=== PATIENT | female | born 1985 | race Caucasian/White ===

== ENCOUNTER 2019-05-16 10:43 | Emergency (ER) | payer OTHER, SELFPAY | END 2019-05-16 12:32 | disposition home or self-care (01) | PROVIDERS: Emergency Provider Nurse Practitioner Family; Family Provider Family Medicine; Visit Provider Nurse Practitioner Family | DX: S61.231A Puncture wound without foreign body of left index finger without damage to nail, initial encounter (principal); W46.1XXA Contact with contaminated hypodermic needle, initial encounter; F17.210 Nicotine dependence, cigarettes, uncomplicated | CPT/HCPCS: 36415; 86706; 86803; 87340; 87389; 99281 ==

== ENCOUNTER → 2020-07-10 00:01 | Outpatient (BNVA) | payer MEDICAID, SELFPAY | PROVIDERS: Family Provider Family Medicine | DX: Z13.6 Encounter for screening for cardiovascular disorders (principal) | CPT/HCPCS: 80061; 82947; 83036 ==

== ENCOUNTER 2020-08-19 20:36 | Emergency (ER) | payer OTHER, SELFPAY ==
[2020-08-19 20:47] VITALS: BP 119/80; PULSE 88; RESP 22; TEMP 36.7; O2SAT 97; BMI 34.9
--- NOTE | 2020-08-20 00:28 | W.ED.FEMALGU ---
HPI - Female Genitourinary General: Chief complaint: Vaginal Bleeding Stated complaint: IUD PROBLEM Time Seen by Provider: 08/20/20 00:15 History of Present Illness: HPI Narrative: Patient is a 35-year-old female comes to the ED with vaginal bleeding and wanting IUD removed. Patient says that yesterday she started developing some mild vaginal bleeding and pain after having sex with her boyfriend. She says it hurt during intercourse as well. She states that afterwards she reached up and felt the string of the IUD that was placed and pulled on it to try to remove it herself because she felt like the IUD might have been causing her discomfort. She was unable to remove IUD her self. Here in the ED she is adamantly requesting that we remove her IUD before she discharges and that is the main thing she wants done. Denies any dysuria or hematuria, fever, chills, nausea/vomiting, bowel symptoms. She has not taken anything for pain before coming to the ED. Patient reports having this kind of bleeding and pelvic pain in the past. Associated symptoms: Deny abdominal pain, headache(s) or nausea Review of Systems Const: Denies: fever(s), chills or fatigue Eyes: Denies: change in vision or eye discomfort ENMT: Denies: throat pain, odynophagia, nasal discharge or nasal congestion Card: Denies: chest pain, palpitations, edema, swelling of feet/ankles, dyspnea on exertion or orthopnea Resp: Denies: dyspnea, productive cough or non-productive cough GI: Denies: abdominal pain, nausea, vomiting, diarrhea, constipation or hematochezia : Reports: vaginal bleeding, pelvic pain and dyspareunia; Denies: flank pain, dysuria or hematuria Musc: Denies: neck pain, back pain or extremity swelling Skin/Breast: Denies: rash or new lesions Neuro: Denies: headache(s), numbness in extremities or weakness in extremities Physical Exam Const: COMMON NORMALS: no acute distress, patient oriented x3 and alert GENERAL APPEARANCE: cooperative and comfortable HENMT: COMMON NORMALS: normocephalic HEAD & SCALP: normocephalic MOUTH: Normal oral and palatal mucosa present THROAT: posterior oropharynx normal and uvula midline Neck/C-Spine: COMMON NORMALS: supple GENERAL: Yes normal visual inspection Resp: COMMON NORMALS: normal respiratory effort, No retractions, No use of accessory muscles and clear to auscultation bilaterally AUSCULTATION: clear to auscultation bilaterally Cardio: COMMON NORMALS: regular rate, regular rhythm, S1 normal heart sound present, S2 normal heart sound present, No gallops present (Cardio), No clicks present (Cardio), No murmurs present (Cardio) and Peripheral pulses 2+ throughout RATE: regular rate RHYTHM: regular rhythm HEART SOUNDS: S1 normal heart sound present and S2 normal heart sound present PERIPHERAL PULSES: Peripheral pulses 2+ throughout GI: COMMON NORMALS: Normal to inspection, nondistended, normoactive bowel sounds present, Soft to palpation and no masses PALPATION: Yes Soft to palpation and Yes Tenderness to palpation present (GI) Details: other (Lower bilateral pelvic tenderness.) : COMMON NORMALS: Yes no CVA tenderness, Yes normal external appearance and Yes normal appearance of the vagina BLADDER/KIDNEY EXAM: Yes no CVA tenderness EXTERNAL FEMALE EXAM: Yes normal appearance of the urethra SPECULUM EXAM - CERVIX: Yes Cervical bleeding (Mild), No Abnormal cervical discharge present and Yes IUD string present Back/Pelvis: COMMON NORMALS: no CVA tenderness Extremity: COMMON NORMALS: normal to inspection Neuro: COMMON NORMALS: patient oriented x3 and moves all extremities SENSORIUM/ORIENTATION: Yes alert Skin: GENERAL SKIN EXAM: dry skin Course ED course: I performed a vaginal speculum exam and removed IUD. There was no complication upon removal of IUD. Cervix had some mild bleeding, but no other discharge seen. Vital Signs: Vital signs: Vital Signs Temperature 98.1 F 08/19/20 20:47 Pulse Rate 88 08/20/20 03:33 Respiratory Rate 16 08/20/20 03:33 Blood Pressure 136/74 08/20/20 03:33 Pulse Oximetry 99 08/20/20 03:33 MDM - Female MDM Narrative: Medical decision making narrative: Patient is a 35-year-old female comes to the ED with lower pelvic pain, mild vaginal bleeding. Patient says that she feels like her IUD is causing her current symptoms and tried pulling on string herself and removing it herself before coming to the ED which caused some pain and some bleeding. Patient says her main reason for coming to the ED she wants IUD removed. CBC and CMP and UA were unremarkable. hCG negative. Speculum exam performed and IUD was removed with no complications. Cervix had some minimal light bleeding seen before removal of IUD. Patient was discharged home and diagnosed with encounter for IUD removal, pelvic pain and vaginal bleeding. Patient was told to follow-up with PCP/[facility] doctor in a week for reevaluation. Return to ED precautions given. Patient understood and agreed with plan. Lab Data: Attestation: I reviewed the patient's lab results. Labs: Lab Results 08/20/20 08/20/20 08/20/20 Range/Units 00:50 00:50 00:50 WBC 10.7 H (4.0-10.0) 10^3/ uL RBC 4.43 (4.1-5.3) 10^6/u L Hgb 13.0 (11.5-15.3) g/dL Hct 40.5 (37.0-47.0) % MCV 91.4 (81-99) fL MCH 29.3 (28.0-34.0) pg MCHC 32.1 (30.0-36.0) g/dL RDW 12.7 (12.1-15.1) % Plt Count 305 (130-400) 10^3/c mm MPV 10.8 H (7.4-10.4) fL Neut % (Auto) 59.9 % Lymph % (Auto) 27.4 % [place] % (Auto) 7.9 % Eos % (Auto) 3.9 % Baso % (Auto) 0.6 % Neut # (Auto) 6.42 (1.8-7.7) 10^3/u L Lymph # (Auto) 2.9 (0.8-4.8) 10^3/u L [place] # (Auto) 0.8 (0.2-0.9) 10^3/u L Eos # (Auto) 0.4 (0.0-0.8) 10^3/u L Baso # (Auto) 0.1 (0.0-0.1) 10^3/u L Nucleated RBC % (a uto) 0 % Nucleated RBCs # 0.0 /100WBC Sodium 137 (136-145) mmol/L Potassium 3.5 (3.5-5.1) mmol/L Chloride 105 (98-107) mmol/L Carbon Dioxide 23 (22-29) mmol/L Anion Gap 12.5 (5-19) BUN 8 (6-20) mg/dL Creatinine 0.4 L (0.5-0.9) mg/dL GFR Calculation 183.8 H (90-130) mL/min Glucose 92 (65-115) mg/dL Calculated Osmolal ity 282 L (285-295) mOsm/k g Calcium 9.2 (8.5-10.5) mg/dL Total Bilirubin 0.4 (0.15-1.2) mg/dL AST 18 (0-32) U/L ALT 13 (0-33) U/L Alkaline Phosphata se 84 (35-105) IU/L Total Protein 6.8 (6.6-8.7) g/dL Albumin 4.5 (3.5-5.2) g/dL Globulin 2.3 (1.3-4.6) g/dL HCG, Qual Negative (Negative) Urine Color (Yellow) Urine Appearance (CLEAR) Urine pH (5-7) Ur Specific Gravit y (1.005-1.030) Urine Protein (Negative) Urine Glucose (UA) (Normal) Urine Ketones (Negative) Urine Blood (Negative) Urine Nitrate (Negative) Urine Bilirubin (Negative) Urine Urobilinogen (Negative) mg/dL Ur Leukocyte Mariela ase (Negative) Urine RBC (0-2) /hpf Urine WBC (0-5) /hpf Ur Squamous Epith Cells (0-5) /hpf Amorphous Sediment Urine Bacteria (NONE) /hpf Urine Mucus /hpf 08/20/20 Range/Units 00:50 WBC (4.0-10.0) 10^3/ uL RBC (4.1-5.3) 10^6/u L Hgb (11.5-15.3) g/dL Hct (37.0-47.0) % MCV (81-99) fL MCH (28.0-34.0) pg MCHC (30.0-36.0) g/dL RDW (12.1-15.1) % Plt Count (130-400) 10^3/c mm MPV (7.4-10.4) fL Neut % (Auto) % Lymph % (Auto) % [place] % (Auto) % Eos % (Auto) % Baso % (Auto) % Neut # (Auto) (1.8-7.7) 10^3/u L Lymph # (Auto) (0.8-4.8) 10^3/u L [place] # (Auto) (0.2-0.9) 10^3/u L Eos # (Auto) (0.0-0.8) 10^3/u L Baso # (Auto) (0.0-0.1) 10^3/u L Nucleated RBC % (a uto) % Nucleated RBCs # /100WBC Sodium (136-145) mmol/L Potassium (3.5-5.1) mmol/L Chloride (98-107) mmol/L Carbon Dioxide (22-29) mmol/L Anion Gap (5-19) BUN (6-20) mg/dL Creatinine (0.5-0.9) mg/dL GFR Calculation (90-130) mL/min Glucose (65-115) mg/dL Calculated Osmolal ity (285-295) mOsm/k g Calcium (8.5-10.5) mg/dL Total Bilirubin (0.15-1.2) mg/dL AST (0-32) U/L ALT (0-33) U/L Alkaline Phosphata se (35-105) IU/L Total Protein (6.6-8.7) g/dL Albumin (3.5-5.2) g/dL Globulin (1.3-4.6) g/dL HCG, Qual (Negative) Urine Color Yellow (Yellow) Urine Appearance Sl hazy (CLEAR) Urine pH 5 (5-7) Ur Specific Gravit y 1.015 (1.005-1.030) Urine Protein Neg (Negative) Urine Glucose (UA) Norm (Normal) Urine Ketones 1+ H (Negative) Urine Blood Trace H (Negative) Urine Nitrate Negative (Negative) Urine Bilirubin Neg (Negative) Urine Urobilinogen Norm (Negative) mg/dL Ur Leukocyte Mariela ase Negative (Negative) Urine RBC 0-4 H (0-2) /hpf Urine WBC 0-4 H (0-5) /hpf Ur Squamous Epith Cells 10-15 H (0-5) /hpf Amorphous Sediment Not Reportable Urine Bacteria Trace (NONE) /hpf Urine Mucus 4+ /hpf Imaging Data: US OB: Attestation: I personally reviewed and interpreted this imaging study as follows: Radiologist's impression: [address] [place] [address] Ultrasound Report Signed Patient: Christal Villagomez Unit #: [id number] : 1985 Age/Sex: 35 / F ADM Date: 08/19/20 Loc: ER Room/Bed: Attending Dr: Ordering Provider/Ordering MD: Quinton Ndiaye Date of Service: 08/20/20 Procedure(s): US pelvic complete* [id number] Accession Number(s): [id number] Report Number: [id number] PROCEDURE INFORMATION: Exam: US Pelvis Complete, Transabdominal and US Pelvis, Transvaginal Exam date and time: 08/20/2020 1:43 AM Age: 35 years old Clinical indication: Pelvic pain; Patient HX: ? Iud malplacement; Additional info: Vaginal bleeding and pelvic cramping TECHNIQUE: Imaging protocol: Real-time transabdominal and transvaginal pelvic ultrasound (complete) with image documentation. Transvaginal imaging was used for better evaluation of the endometrium, adnexa, and/or cervix. COMPARISON: No relevant prior studies available. FINDINGS: The uterus measures 9-10 cm in length. There is no visible focal uterine mass. An IUD is present within the uterus. I think that the IUD lies in the lower uterine segment, possibly extending partially into the cervical region. There is no intrauterine fluid. Endometrial thickness is about 7 mm. Small amount of cul-de-sac fluid. The right ovary measures 27 x 16 x 21 mm, estimated volume 4.6 cc. The right ovary appears essentially unremarkable. The left ovary measures 34 x 28 x 30 mm, estimated volume 14.6 cc. Small complex cyst in the left ovary, measuring 19 x 16 mm. A physiologic/hemorrhagic cyst is likely, other etiologies not excluded. As clinically directed, follow up in one to three months may be useful to evaluate for resolution of a physiologic cyst, and to guard against a persistent/enlarging lesion. The urinary bladder was not completely evaluated/imaged at this time. Endovaginal scanning provided better visualization/evaluation of the endometrium and ovaries/adnexal regions, as discussed above. US/US pelvic complete* [id number] IMPRESSION: 1. An IUD is present within the uterus, details above. 2. Small complex cyst in the left ovary, measuring 19 x 16 mm. 3. Small amount of cul-de-sac fluid 4. Other details discussed above. Dictated By: Theo Mueller MD Signed By: Theo Mueller MD Signed Date/Time: 08/20/20222 DD/ 0 Discharge Plan Discharge Patient Disposition: Home Clinical Impression: Encounter for IUD removal, Vaginal bleeding, Pelvic pain in female Condition: Stable Discharge Orders: Discharge ED (Routine); Ordered 08/20/20 Ordered By: Quinton Ndiaye Referrals: Juana Castaneda FNP [Primary Care Provider] - Discharge Diet: Regular Discharge Activity: Increase activity as tolerated Activity Restrictions/Additional Instructions: Follow-up with [facility] doctor in the next week for reevaluation. Take [id number] ibuprofen or Tylenol for any pain. Return to the ER or your medical provider if condition worsens. Please read and understand discharge instructions. If any questions, please ask. Coding Level of Care Code ED Optometric Assistant for Chg Fwd Exam Comprehensive
[2020-08-20] MEDS: ibuprofen 600 mg Tablet PO (00:46)
[2020-08-20 01:01] LABS: Basophils # 0.1 10^3/uL (0.0-0.1); Basophils % 0.6 %; Eosinophils # 0.4 10^3/uL (0.0-0.8); Eosinophils % 3.9 %; Hematocrit 40.5 % (37.0-47.0); Lymphocytes # 2.9 10^3/uL (0.8-4.8); Lymphocytes % 27.4 %; Mean Corpuscular HGB Conc 32.1 g/dL (30.0-36.0); Mean Corpuscular Hemoglobin 29.3 pg (28.0-34.0); Mean Corpuscular Volume 91.4 fL (81-99); Mean Platelet Volume 10.8 fL (7.4-10.4); Monocytes # 0.8 10^3/uL (0.2-0.9); Monocytes % 7.9 %; Neutrophils # 6.42 10^3/uL (1.8-7.7); Neutrophils % 59.9 %; Nucleated Red Blood Cells % 0 %; Platelet Count 305 10^3/cmm (130-400); Red Blood Count 4.43 10^6/uL (4.1-5.3); Red Cell Distribution Width 12.7 % (12.1-15.1); White Blood Count 10.7 10^3/uL (4.0-10.0)
[2020-08-20 01:05] LABS: HCG, Serum Qual Negative (Negative)
[2020-08-20 01:25] LABS: Bilirubin Urine Neg (Negative); Blood Urine Trace (Negative); Glucose Urine UA Norm (Normal); Ketones Urine 1+ (Negative); Leukocyte Esterase Urine Negative (Negative); Nitrate Urine Negative (Negative); Protein Urine Neg (Negative); Specific Gravity, Urine 1.015 (1.005-1.030); Urine Appearance SL Hazy (CLEAR); Urine Color Yellow (Yellow); Urobilinogen Urine Norm (Negative); pH Urine 5 (5-7)
[2020-08-20 01:26] LABS: Bacteria Urine TRACE /hpf; RBC Urine 0-4 /hpf (0-2); WBC Urine 0-4 /hpf (0-5)
[2020-08-20 01:27] LABS: Add Urine Culture? No; Mucus Urine 4+ /hpf
[2020-08-20 02:02] LABS: Alanine Aminotransferase 13 U/L (0-33); Albumin Level 4.5 g/dL (3.5-5.2); Alkaline Phosphatase 84 IU/L (35-105); Anion Gap 12.5 (5-19); Aspartate Amino Transferase 18 U/L (0-32); Blood Urea Nitrogen 8 mg/dL (6-20); Calcium 9.2 mg/dL (8.5-10.5); Carbon Dioxide 23 mmol/L (22-29); Chloride 105 mmol/L (98-107); Globulin 2.3 g/dL (1.3-4.6); Glomerular Filtration Rate 183.8 mL/min (90-130); Glucose 92 mg/dL (65-115); Osmolality Calculated 282 mOsm/kg (285-295); Potassium 3.5 mmol/L (3.5-5.1); Sodium 137 mmol/L (136-145); Total Bilirubin 0.4 mg/dL (0.15-1.2); Total Protein 6.8 g/dL (6.6-8.7)
[2020-08-20] MEDS: HYDROcodone-acetaminophen 5-325 mg Tablet 1 TAB PO (02:25)
[2020-08-20 03:33] VITALS: BP 136/74; PULSE 88; RESP 16; O2SAT 99
== END 2020-08-20 03:35 | disposition home or self-care (01) ==
PROVIDERS: Emergency Provider Physician Assistant; PCP Nurse Practitioner Family
DX: Z30.432 Encounter for removal of intrauterine contraceptive device (principal); N93.9 Abnormal uterine and vaginal bleeding, unspecified; R10.2 Pelvic and perineal pain
CPT/HCPCS: 76830; 76856; 80053; 81001; 84703; 85025; 99283; E0352

== ENCOUNTER → 2021-01-15 10:27 | Outpatient (BNVA) | payer OTHER, SELFPAY | PROVIDERS: PCP Nurse Practitioner Family; Visit Provider Obstetrics & Gynecology | DX: N83.8 Other noninflammatory disorders of ovary, fallopian tube and broad ligament (principal) | CPT/HCPCS: 76830 ==

== ENCOUNTER → 2021-03-08 13:04 | Outpatient (BNVA) | payer OTHER, SELFPAY | PROVIDERS: PCP Nurse Practitioner Family; Visit Provider Obstetrics & Gynecology | DX: N83.202 Unspecified ovarian cyst, left side (principal) | CPT/HCPCS: 76830 ==

== ENCOUNTER → 2021-04-09 08:17 | Outpatient (BNVA) | payer OTHER, SELFPAY | PROVIDERS: PCP Nurse Practitioner Family; Visit Provider Obstetrics & Gynecology | DX: N83.202 Unspecified ovarian cyst, left side (principal) | CPT/HCPCS: 71046; 76830; 80053 ==

== ENCOUNTER 2021-04-10 18:50 | Emergency (ER) | payer OTHER, SELFPAY ==
[2021-04-10 19:13] VITALS: BP 131/86; PULSE 102; RESP 16; TEMP 36.9; O2SAT 97; BMI 31.4
--- NOTE | 2021-04-10 19:32 | ECG_ITS ---
[facility] Test Date: 2021-04-10 Pat Name: Christal Villagomez Department: Room: Gender: Female Fashion Coordinator: : 1985 Requested By: Ellen Morales Order Number: [id number] Lucía MD: Fredy Dunlap M.D. Measurements Intervals [place] Rate: 93 P: 65 DE: 141 QRS: 54 QRSD: 98 T: 43 QT: 341 QTc: 425 Interpretive Statements SINUS RHYTHM WITH SINUS ARRHYTHMIA No previous ECG available for comparison Electronically Signed On 04-11-2021 17:44:42 MANAGER WASTEWATER by Fredy Dunlap M.D. [email or web address]
--- NOTE | 2021-04-10 20:02 | W.ED.GENADLT ---
HPI - General Adult General: Chief complaint: Recheck/Abnormal Lab/Rx Stated complaint: Dr sent by PCP Time Seen by Provider: 04/10/21 19:27 History of Present Illness: HPI narrative: Patient is a 35-year-old female with a history of recently diagnosed atypical pneumonia on antibiotics in steroids presenting to the emergency room for routine blood work of hyperkalemia. Patient tells me that she was found to have potassium 6.6 on routine blood work from 2 days ago. Patient has no focal complaints other than cough for which she is getting treatment for. Denies any chest pain, shortness breath palpitation, lightheadedness, fever/chills, nausea/vomiting, abdominal complaints, complaints at this time. Onset: 2 days ago Duration:ongoing Location:home Severity:none Review of Systems Narrative: Constitutional: No fever, no chills. HEENT: No vision changes CV: No chest pain, no palpitations PULM: no cough, no dyspnea. GI: No abdominal pain, no N/V/D. : No dysuria MSKEL: No muscle pain SKIN: No new rashes, no lesions. NEURO: No headache, no focal weakness. HEME: No visible bruises PSYCH: Normal mood PFSH ED PFSH: Medical History Allergic rhinitis Anxiety and depression History of Papanicolaou smear of cervix Negative for intraepithelial lesion and malignancy. Negative HPV. 10/31/2017. Migraine Family History Mother Anesthesia complication Awake but could not move or speak. Cancer Liver cancer after hepatitis c. Psychiatric illness Bipolar, manic depressive. Father Cancer Leukemia after agent orange exposure Denies family history of Diabetes CAD (coronary artery disease) Clotting disorder Dementia Hyperlipidemia Chronic kidney disease (CKD) Suicide Bleeding disorder Family history of premature coronary artery disease Lung disease Hypertension Stroke Social History Smoking and tobacco status: never smoked Quit status (tobacco): has quit using tobacco Year quit tobacco: 07/2020 Former quit date comment: has smoked 12 yrs Alcohol intake: current Alcohol intake frequency: holidays/special occasions only Current occupation: [employer] Female Reproductive History: Date of last menstrual period: 03/16/21 Physical Exam Narrative: EXAM NARRATIVE: Head: Atraumatic Eyes: PERRL, conjunctiva without injection ENT: Mucous membrane moist NECK: Supple, ROM intact LUNGS: LCTAB, no crackles/rhonchi CV: RRR ABDOMEN: Soft, nontender in all quadrants EXTREMITY: Normal ROM SKIN: No rash or erythema NEURO: Awake and alert, no focal motor deficits PSYCH: Normal mood and affect Course Vital Signs: Vital signs: Vital Signs Temperature 98.4 F 04/10/21 19:13 Pulse Rate 102 H 04/10/21 19:13 Respiratory Rate 16 04/10/21 19:13 Blood Pressure 131/86 04/10/21 19:13 Pulse Oximetry 97 04/10/21 19:13 MDM - General Adult MDM Narrative: Medical decision making narrative: 35-year-old female presents emergency room with concerns for hyperkalemia on routine blood work. Potassium 3.3 today per our blood work. EKG does not show any signs of hyperkalemia. Patient will be discharged with outpatient follow-up. Disposition: Discharge. Patient counseled regarding diagnostic impression, treatment plan. Patient given ED strict return precautions to return for continuation, worsening, or development of new symptoms. Instructed to f/u w/ PCP regarding symptoms today. Patient verbalized understanding. Lab Data: Labs: Lab Results 04/10/21 04/10/21 21:20 21:20 WBC 10.8 10^3/uL H 10 ^3/uL (4.0-10.0) RBC 4.70 10^6/uL 10^6 /uL (4.1-5.3) Hgb 13.7 g/dL g/dL (11.5-15.3) Hct 42.6 % % (37.0-47.0) MCV 90.6 fl fl (81-99) MCH 29.1 pg pg (28.0-34.0) MCHC 32.2 g/dL g/dL (30.0-36.0) RDW 13.4 % % (12.1-15.1) Plt Count 352 10^3/cmm 10^3 /cmm (130-400) MPV 10.5 fL H fL (7.4-10.4) Neut % (Auto) 49.6 % % Lymph % (Auto) 40.4 % % [place] % (Auto) 6.8 % % Eos % (Auto) 2.4 % % Baso % (Auto) 0.6 % % Neut # (Auto) 5.35 10^3/uL 10^3 /uL (1.8-7.7) Lymph # (Auto) 4.4 10^3/uL 10^3/ uL (0.8-4.8) [place] # (Auto) 0.7 10^3/uL 10^3/ uL (0.2-0.9) Eos # (Auto) 0.3 10^3/uL 10^3/ uL (0.0-0.8) Baso # (Auto) 0.1 10^3/uL 10^3/ uL (0.0-0.1) Nucleated RBC % (a uto) 0 % % Nucleated RBCs # 0.0 /100WBC /100W BC Sodium 142 mmol/L mmol/L (136-145) Potassium 3.3 mmol/L L mmol /L (3.5-5.1) Chloride 108 mmol/L H mmol /L (98-107) Carbon Dioxide 22 mmol/L mmol/L (22-29) Anion Gap 15.3 (5-19) BUN 11 mg/dL mg/dL (6-20) Creatinine 0.5 mg/dL mg/dL (0.5-0.9) GFR Calculation 142.1 mL/min H mL /min (90-130) Glucose 88 mg/dL mg/dL (65-115) Calculated Osmolal ity 293 mOsm/kg mOsm/ kg (285-295) Calcium 8.5 mg/dL mg/dL (8.5-10.5) Discharge Plan Discharge Patient Disposition: Home Clinical Impression: General medical exam Condition: Stable Prescriptions: No Action multivitamin Tablet 1 tab PO DAILY RF: 0 norgestimate-ethinyl estradiol [Ortho Tri-Cyclen (28)] 0.18/0.215/0.25 mg-35 mcg (28) tablet 1 tab PO DAILY Qty: 28 RF: 11 buspirone 10 mg tablet 10 mg PO TID Qty: 270 RF: 0 multivitamin with minerals [Hair,Skin and Nails] Tablet 3 tab PO DAILY RF: 0 docusate sodium 100 mg capsule 100 mg PO DAILY PRNRF: 0 venlafaxine [Effexor XR] 75 mg capsule,extended release 24hr 75 mg PO DAILY Qty: 30 RF: 0 Ubrelvy 100 mg tablet 100 mg PO .COMPLEX 30 Days Qty: 30 RF: 6 promethazine-DM 6.25-15 mg/5 mL syrup 5 ml PO Q6H Qty: 118 RF: 0 pantoprazole [Protonix] 40 mg tablet,delayed release (DR/EC) 40 mg PO DAILY 90 Days Qty: 90 RF: 0 methylprednisolone [Medrol (Jaylen)] 4 mg tablets,dose pack See Rx Instructions PO PER PKG DIR Qty: 21 RF: 0 albuterol sulfate [ProAir HFA] 90 mcg/actuation HFA aerosol inhaler 2 puff inhalation Q6H PRN (Reason: shortness of breath or wheezing) Qty: 8.5 RF: 0 promethazine-DM 6.25-15 mg/5 mL syrup 5 ml PO Q6H PRN (Reason: cough) Qty: 118 RF: 0 budesonide-formoterol [Symbicort] 160-4.5 mcg/actuation HFA aerosol inhaler 2 puff inhalation Q12H Qty: 10.2 RF: 6 azithromycin [Zithromax Z-Jaylen] 250 mg tablet See Rx Instructions PO .COMPLEX Qty: 6 RF: 0 Mucinex 1,200 mg tablet extended release 12hr 1,200 mg PO BID 10 Days Qty: 20 RF: 6 trazodone 50 mg tablet See Rx Instructions .ROUTE .COMPLEX Qty: 90 RF: 0 topiramate 100 mg tablet See Rx Instructions .ROUTE .COMPLEX Qty: 180 RF: 0 Discharge Orders: Discharge ED (Routine); Ordered 04/10/21 Ordered By: Ellen Morales Discharge Diet: Advance as tolerated Discharge Activity: Resume usual activity Activity Restrictions/Additional Instructions: Please come back to the emergency room you have any new or concerning complaints. Coding Level of Care Code ED Silver Buffer for Nehemiah Shaffer
[2021-04-10 21:20] VITALS: BP 128/79; PULSE 90; RESP 18; O2SAT 98
[2021-04-10] MEDS: sodium chloride 0.9% 1,000 ML 999 ML IV (21:31)
[2021-04-10 21:51] LABS: Basophils # 0.1 10^3/uL (0.0-0.1); Basophils % 0.6 %; Eosinophils # 0.3 10^3/uL (0.0-0.8); Eosinophils % 2.4 %; Hematocrit 42.6 % (37.0-47.0); Hemoglobin 13.7 g/dL (11.5-15.3); Lymphocytes # 4.4 10^3/uL (0.8-4.8); Lymphocytes % 40.4 %; Mean Corpuscular HGB Conc 32.2 g/dL (30.0-36.0); Mean Corpuscular Hemoglobin 29.1 pg (28.0-34.0); Mean Corpuscular Volume 90.6 fl (81-99); Mean Platelet Volume 10.5 fL (7.4-10.4); Monocytes # 0.7 10^3/uL (0.2-0.9); Monocytes % 6.8 %; Neutrophils # 5.35 10^3/uL (1.8-7.7); Neutrophils % 49.6 %; Nucleated Red Blood Cells % 0 %; Platelet Count 352 10^3/cmm (130-400); Red Cell Distribution Width 13.4 % (12.1-15.1); White Blood Count 10.8 10^3/uL (4.0-10.0)
[2021-04-10 22:11] LABS: Anion Gap 15.3 (5-19); Blood Urea Nitrogen 11 mg/dL (6-20); Calcium 8.5 mg/dL (8.5-10.5); Carbon Dioxide 22 mmol/L (22-29); Chloride 108 mmol/L (98-107); Glomerular Filtration Rate 142.1 mL/min (90-130); Glucose 88 mg/dL (65-115); Osmolality Calculated 293 mOsm/kg (285-295); Potassium 3.3 mmol/L (3.5-5.1); Sodium 142 mmol/L (136-145)
[2021-04-10 23:00] VITALS: BP 131/76; PULSE 103; RESP 20; O2SAT 98
== END 2021-04-10 22:55 | disposition home or self-care (01) ==
PROVIDERS: Emergency Provider Emergency Medicine
DX: Z00.00 Encounter for general adult medical examination without abnormal findings (principal)
CPT/HCPCS: 80048; 85025; 93005; 96360; 99284; J7030

== ENCOUNTER 2021-05-25 10:48 | Outpatient (CLI) | payer OTHER, SELFPAY ==
--- NOTE | 2021-05-25 11:00 | US_ITS ---
WS: [id number] Complete ABDOMINAL ULTRASOUND HISTORY: Abdominal pain. RIGHT upper quadrant pain. COMPARISON: None available. Liver: 18.7 cm in length. Liver is moderately enlarged. Mild coarsened echotexture but no significant fatty infiltration. No bile duct dilatation. Portal Vein: Normal hepatopetal flow with monophasic waveform. Gallbladder: Normally distended gallbladder. There is a small polyp on a stalk extending into the gal lbladder. Polyp measures approximately 4 mm. No cholelithiasis. No wall thickening. Gallbladder wall thickness: 0.2 cm. Pancreas: Normal size and echogenicity. CBD: 0.5 cm. Right kidney: 12.8 cm x 4.7 cm x 5.3 cm. No mass, cortical thickening or hydronephrosis. Left kidney: 11.6 cm x 5.5 cm x 5.7 cm. No mass, cortical thickening or hydronephrosis. Spleen: Normal size and echogenicity. Abdominal aorta and IVC are within normal limits. No ascites. US/US abdomen complete* [id number] IMPRESSION: 1. Gallbladder polyp. No cholelithiasis. 2. Moderately enlarged liver. 3. Otherwise negative abdomen ultrasound.
== END 2021-05-25 10:49 | disposition home or self-care (01) ==
LOC: RAD 10:53
PROVIDERS: Visit Provider Nurse Practitioner Family
DX: K90.9 Intestinal malabsorption, unspecified (principal); R10.11 Right upper quadrant pain; R10.12 Left upper quadrant pain; R10.13 Epigastric pain; R10.9 Unspecified abdominal pain; K82.4 Cholesterolosis of gallbladder; R16.0 Hepatomegaly, not elsewhere classified
CPT/HCPCS: 76700

== ENCOUNTER → 2021-05-30 14:40 | Outpatient (BNVA) | payer OTHER, SELFPAY | PROVIDERS: Visit Provider Nurse Practitioner Family | DX: K76.0 Fatty (change of) liver, not elsewhere classified (principal); R10.11 Right upper quadrant pain | CPT/HCPCS: 80053; 86705; 86706; 86709; 86803; 87340 ==

== ENCOUNTER 2021-07-30 10:33 | Emergency (ER) | payer OTHER, SELFPAY ==
[2021-07-30 10:39] VITALS: BP 108/70; PULSE 95; RESP 16; TEMP 37.1; O2SAT 97; BMI 34.5
--- NOTE | 2021-07-30 11:13 | W.ED.FEMALGU ---
HPI - Female Genitourinary General: Stated complaint: cramping/bleedin wks preg Time Seen by Provider: 07/30/21 10:35 Source: patient Mode of arrival: ambulatory Limitations: no limitations History of Present Illness: Patient is a 36-year-old female presents to ED today with concerns of possible miscarriage. Patient states based on her LMP she is 7w3d. She has not had her confirmed in a clinic office. She has had a home positive test. Patient states approximately 3 days ago she began having some light brown spotty discharge when she wiped that has now progressed to larger bright red blood with a very small amount of tissue. Patient is not having to wear a pad. She states bleeding seems to be intermittent and always when she wipes. She is not really complaining of any discomfort or cramping. She does have a known uterine fibroid and a left ovarian cyst. MD elicited complaint: vaginal bleeding and possible miscarriage Onset (ago): day(s) Severity: mild Consistency: intermittent Vaginal discharge: none Vaginal bleeding: scant and bright red Exacerbating factors: none Relieving factors: none Associated symptoms: Reports no associated symptoms; Deny abdominal pain, headache(s), nausea or vaginal discharge Treatment prior to arrival: none Sexual activity: Yes Patient : Yes Date of Last Menstrual Period: 03/16/21 Review of Systems Const: Denies: fever(s), chills, body aches, fatigue or malaise Card: Denies: chest pain Resp: Denies: dyspnea GI: Denies: abdominal pain, nausea, vomiting or diarrhea : Reports: vaginal bleeding; Denies: flank pain, difficulty voiding, dysuria, urinary frequency, vaginal odor, vaginal discharge or pelvic pain Musc: Denies: neck pain, back pain, extremity pain or joint pain Skin/Breast: Denies: rash Neuro: Denies: headache(s) PFSH ED PFSH: Medical History Allergic rhinitis Anxiety and depression History of Papanicolaou smear of cervix Negative for intraepithelial lesion and malignancy. Negative HPV. 10/31/2017. Migraine Family History Mother Anesthesia complication Awake but could not move or speak. Cancer Liver cancer after hepatitis c. Psychiatric illness Bipolar, manic depressive. Father Cancer Leukemia after agent orange exposure Denies family history of Diabetes CAD (coronary artery disease) Clotting disorder Dementia Hyperlipidemia Chronic kidney disease (CKD) Suicide Bleeding disorder Family history of premature coronary artery disease Lung disease Hypertension Stroke Social History Quit status (tobacco): has quit using tobacco Year quit tobacco: 05/2020 Second hand smoke exposure: No Alcohol intake: current Alcohol intake frequency: holidays/special occasions only Caregiver/support person: Yes Lives independently: Yes Household members: significant other and children Marital status: Life Partner service: No Current occupational status: employed Current occupation: [employer] History of recent travel: No Current gender identity: Female Special brittney needs: No Female Reproductive History: Date of last menstrual period: 03/16/21 Physical Exam Const: COMMON NORMALS: no acute distress, patient oriented x3, no limitations, alert and well nourished Resp: COMMON NORMALS: normal respiratory effort Cardio: COMMON NORMALS: regular rate and regular rhythm RATE: regular rate RHYTHM: regular rhythm GI: COMMON NORMALS: Normal to inspection, nondistended, normoactive bowel sounds present, Soft to palpation, non-tender, No hepatosplenomegaly present and no masses PALPATION: Yes Soft to palpation and Yes No hepatosplenomegaly present : COMMON NORMALS: Yes no CVA tenderness BLADDER/KIDNEY EXAM: Yes no CVA tenderness Back/Pelvis: COMMON NORMALS: no CVA tenderness Neuro: COMMON NORMALS: patient oriented x3 SENSORIUM/ORIENTATION: Yes alert Course Vital Signs: Vital signs: Vital Signs Temperature 98.7 F 07/30/21 10:39 Pulse Rate 95 07/30/21 10:39 Respiratory Rate 16 07/30/21 10:39 Blood Pressure 108/70 07/30/21 10:39 Pulse Oximetry 97 07/30/21 10:39 MDM - Female Medical Decision Making Patient here with early bleeding. She has a live IUP with HR in the 150s. Cervix closed. Recommend pelvic rest and follow up with her OB as soon as possible. Return to ED precautions given. Lab Data : 07/30/21 11:32 07/30/21 11:32 Radiology Impressions Transvaginal US 07/30/21 11:24 Impression: 1. Single interuterine . 2. Estimated gestational age of 7w5d with an DEVONTE of 03/13/2022. 3. heart rate 150 beats per minute. 4. Small subchorionic hematoma. 5. Uterine fibroid. Laboratory Results WBC 7.5 10^3/uL (4.0-10.0) 07/30/21 11:32 RBC 4.45 10^6/uL (4.1-5.3) 07/30/21 11:32 Hgb 12.8 g/dL (11.5-15.3) 07/30/21 11:32 Hct 39.6 % (37.0-47.0) 07/30/21 11:32 MCV 89.0 fl (81-99) 07/30/21 11:32 MCH 28.8 pg (28.0-34.0) 07/30/21 11:32 MCHC 32.3 g/dL (30.0-36.0) 07/30/21 11:32 RDW 12.7 % (12.1-15.1) 07/30/21 11:32 Plt Count 262 10^3/cmm (130-400) 07/30/21 11:32 MPV 10.1 fL (7.4-10.4) 07/30/21 11:32 Neut % (Auto) 70.5 % 07/30/21 11:32 Lymph % (Auto) 17.2 % 07/30/21 11:32 [place] % (Auto) 7.7 % 07/30/21 11:32 Eos % (Auto) 3.6 % 07/30/21 11:32 Baso % (Auto) 0.7 % 07/30/21 11:32 Neut # (Auto) 5.28 10^3/uL (1.8-7.7) 07/30/21 11:32 Lymph # (Auto) 1.3 10^3/uL (0.8-4.8) 07/30/21 11:32 [place] # (Auto) 0.6 10^3/uL (0.2-0.9) 07/30/21 11:32 Eos # (Auto) 0.3 10^3/uL (0.0-0.8) 07/30/21 11:32 Baso # (Auto) 0.1 10^3/uL (0.0-0.1) 07/30/21 11:32 Nucleated RBC % (auto) 0 % 07/30/21 11:32 Nucleated RBCs # 0.0 /100WBC 07/30/21 11:32 Sodium 134 mmol/L (136-145) L 07/30/21 11:32 Potassium 3.8 mmol/L (3.5-5.1) 07/30/21 11:32 Chloride 102 mmol/L (98-107) 07/30/21 11:32 Carbon Dioxide 21 mmol/L (22-29) L 07/30/21 11:32 Anion Gap 14.8 (5-19) 07/30/21 11:32 BUN 7 mg/dL (6-20) 07/30/21 11:32 Creatinine 0.4 mg/dL (0.5-0.9) L 07/30/21 11:32 GFR Calculation 182.7 mL/min (90-130) H 07/30/21 11:32 Glucose 125 mg/dL (65-115) H 07/30/21 11:32 Calculated Osmolality 277 mOsm/kg (285-295) L 07/30/21 11:32 Calcium 8.4 mg/dL (8.5-10.5) L 07/30/21 11:32 Total Bilirubin 0.2 mg/dL (0.15-1.2) 07/30/21 11:32 AST 13 U/L (0-32) 07/30/21 11:32 ALT 11 U/L (0-33) 07/30/21 11:32 Alkaline Phosphatase 65 IU/L (35-105) 07/30/21 11:32 Total Protein 6.7 g/dL (6.6-8.7) 07/30/21 11:32 Albumin 4.3 g/dL (3.5-5.2) 07/30/21 11:32 Globulin 2.4 g/dL (1.3-4.6) 07/30/21 11:32 Ser , Semi-Qnt 84768.00 mIU/mL 07/30/21 11:32 Discharge Plan Discharge Patient Disposition: Home Clinical Impression: Threatened miscarriage in early Condition: Stable Prescriptions: No Action multivitamin Tablet 1 tab PO DAILY 0RF multivitamin with minerals [Hair,Skin and Nails] Tablet 3 tab PO DAILY 0RF docusate sodium 100 mg capsule 100 mg PO DAILY PRN0RF Ubrelvy 100 mg tablet 100 mg PO .COMPLEX 30 Days Qty: 30 6RF Rx Instructions: 100 mg PO Max 200 MG in 24 hours.; Max 200 MG in 24 hours. albuterol sulfate [ProAir HFA] 90 mcg/actuation HFA aerosol inhaler 2 puff inhalation Q6H PRN (Reason: shortness of breath or wheezing) Qty: 8.5 0RF budesonide-formoterol [Symbicort] 160-4.5 mcg/actuation HFA aerosol inhaler 2 puff inhalation Q12H Qty: 10.2 6RF Discharge Orders: Discharge ED (Routine); Ordered 07/30/21 Ordered By: Valarie Hansen Referrals: sEther Hoffman FNP [Primary Care Provider] - Patient Instructions: Threatened Miscarriage (ED) Activity Restrictions/Additional Instructions: As we discussed please follow-up with your OB provider as soon as possible for reevaluation. Pelvic rest until cleared by your OB. You need to return to the emergency department for any severe abdominal/pelvic pain or cramping, worsening vaginal bleeding, soaking more than one pad an hour, or any other concerns you may have. Stand Alone Forms: Work/School Release Coding Level of Care Code ED Business Process Manager for Chg Fwd Exam Detailed
--- NOTE | 2021-07-30 11:24 | US_ITS ---
WS: [id number] OB ultrasound, 07/30/2021 Clinical Data: 7w3d based on LMP; bleeding Comparison: None. Findings: There is a small uterine fibroid measuring 2.07 x 2.14 x 2.75 cm. There is also a subchorionic hemato ma. The cervix is long and closed. There is a single interuterine . heart rate is 150 beats per minute. There is a yolk sac present. The crown-rump length measured 1.4 cm and the gestational sac 2.28 cm. The estimated gestational age 7w5d is with an DEVONTE of approximately 03/13/2022. The left ovary measured 2.9 cm x 3.6 cm x 2.0 cm. The right ovary measured 2.0 cm x 3.6 cm x 3.6 cm. No ovarian cyst or masses are seen. US/US OB transvaginal [id number] Impression: 1. Single interuterine . 2. Estimated gestational age of 7w5d with an DEVONTE of 03/13/2022. 3. heart rate 150 beats per minute. 4. Small subchorionic hematoma. 5. Uterine fibroid.
[2021-07-30 11:42] LABS: Basophils # 0.1 10^3/uL (0.0-0.1); Basophils % 0.7 %; Eosinophils # 0.3 10^3/uL (0.0-0.8); Eosinophils % 3.6 %; Hematocrit 39.6 % (37.0-47.0); Hemoglobin 12.8 g/dL (11.5-15.3); Lymphocytes # 1.3 10^3/uL (0.8-4.8); Lymphocytes % 17.2 %; Mean Corpuscular HGB Conc 32.3 g/dL (30.0-36.0); Mean Corpuscular Hemoglobin 28.8 pg (28.0-34.0); Mean Platelet Volume 10.1 fL (7.4-10.4); Monocytes # 0.6 10^3/uL (0.2-0.9); Monocytes % 7.7 %; Neutrophils # 5.28 10^3/uL (1.8-7.7); Neutrophils % 70.5 %; Nucleated Red Blood Cells % 0 %; Platelet Count 262 10^3/cmm (130-400); Red Blood Count 4.45 10^6/uL (4.1-5.3); Red Cell Distribution Width 12.7 % (12.1-15.1); White Blood Count 7.5 10^3/uL (4.0-10.0)
[2021-07-30 12:10] LABS: Alanine Aminotransferase 11 U/L (0-33); Albumin Level 4.3 g/dL (3.5-5.2); Alkaline Phosphatase 65 IU/L (35-105); Anion Gap 14.8 (5-19); Aspartate Amino Transferase 13 U/L (0-32); Blood Urea Nitrogen 7 mg/dL (6-20); Calcium 8.4 mg/dL (8.5-10.5); Carbon Dioxide 21 mmol/L (22-29); Chloride 102 mmol/L (98-107); Globulin 2.4 g/dL (1.3-4.6); Glomerular Filtration Rate 182.7 mL/min (90-130); Glucose 125 mg/dL (65-115); Osmolality Calculated 277 mOsm/kg (285-295); Potassium 3.8 mmol/L (3.5-5.1); Sodium 134 mmol/L (136-145); Total Bilirubin 0.2 mg/dL (0.15-1.2); Total Protein 6.7 g/dL (6.6-8.7)
== END 2021-07-30 12:55 | disposition home or self-care (01) ==
PROVIDERS: Emergency Provider Physician Assistant; PCP Nurse Practitioner Family
DX: O20.0 Threatened abortion (principal); Z3A.01 Less than 8 weeks gestation of pregnancy; Z87.891 Personal history of nicotine dependence
CPT/HCPCS: 76817; 80053; 84702; 85025; 99282

== ENCOUNTER 2021-10-22 12:18 | Outpatient (CLI) | payer OTHER, SELFPAY ==
--- NOTE | 2021-10-22 | US_ITS ---
WS: [id number] OBSTETRICAL ULTRASOUND COMPLETE HISTORY: MULTIGRAVIDA IN SECOND TRIMESTER COMPARISON: 07/30/2021 Single intrauterine gestation in variable presentation. Cervix is Closed and normal length. Cervical length is 7.0 cm. Normal amount of amniotic fluid surrounds the fetus. Placenta: Anterior and fundal. Placenta grade 1 Heart: 148 BPM. Four chambers are identified. No outflow tracts submitted. Anatomy: Intracranial structures and spine are normal. kidneys, stomach and urinary bladd er are unremarkable. Abdominal wall, three-vessel cord and cord insertion site are normal. 4 extremities are present. profile: Unremarkable. Gender: Male. measurements: BPD = 4.7 cm = 20w2d HC = 17.5 cm = 20w0d AC = 15.5 cm = 20w5d FL = 3.3 cm = 20w2d EFW: 357 g. Biometry is internally concordant. AGA by ultrasound: 20 weeks 3 days DEVONTE by ultrasound: 03/08/2022 US/US OB >= 14 weeks fetus [id number] IMPRESSION: 1. Single intrauterine gestation of 20 weeks 3 days with an DEVONTE of 03/08/2022. Appropriate growth since the first trimester ultrasound. 2. Unremarkable screening survey of anatomy.
== END 2021-10-22 12:19 | disposition home or self-care (01) ==
LOC: RADOUTREAD 12:20
PROVIDERS: PCP Nurse Practitioner Family; Visit Provider Family Medicine
DX: Z34.82 Encounter for supervision of other normal pregnancy, second trimester (principal)
CPT/HCPCS: 76805

== ENCOUNTER 2021-11-12 15:17 | Outpatient (CLI) | payer OTHER, SELFPAY ==
[2021-11-12 15:33] VITALS: BP 110/54; PULSE 82
[2021-11-12 15:42] VITALS: RESP 17
--- NOTE | 2021-11-12 15:42 | US_ITS ---
WS: [id number] ULTRASOUND OB LIMITED TECHNIQUE: Limited ultrasound examination of the fetus. CLINICAL INFORMATION: vaginal bleeding, cramping COMPARISON: October 22, 2021 FINDINGS: Cervix is long and closed. Cervix measures 5.4 cm Single interuterine gestation with normal cardiac activity. presentation is breech Placental location is anterior fundal. Placenta grade: 1 heart rate 138 BPM. BHARTI 18.1 CM. US/US OB limited [id number] IMPRESSION: 1. Cervix is long and closed measuring 5.4 cm 2. presentation is breech. 3. Placenta appears normal. 4. Normal amniotic fluid volume.
[2021-11-12 15:45] VITALS: BMI 37.3
[2021-11-12 15:47] VITALS: BP 99/58; PULSE 82
[2021-11-12 16:02] VITALS: BP 99/58; PULSE 83
[2021-11-12 16:17] VITALS: BP 103/60; PULSE 85
[2021-11-12 16:32] VITALS: BP 103/62; PULSE 82
== END 2021-11-12 16:54 | disposition home or self-care (01) ==
LOC: OPOB 15:18 → OBGYN 15:26
PROVIDERS: PCP Nurse Practitioner Family; Visit Provider Family Medicine
DX: O46.90 Antepartum hemorrhage, unspecified, unspecified trimester (principal); Z3A.00 Weeks of gestation of pregnancy not specified; R10.2 Pelvic and perineal pain
CPT/HCPCS: 76815; 99211

== ENCOUNTER 2022-03-04 13:38 | Inpatient (IN) | payer OTHER, MEDICAID, SELFPAY ==
[2022-03-04] VITALS (51 sets, daily range): BP systolic 93–206; BP diastolic 52–157; PULSE 73–111; RESP 16–18; TEMP 35.7–36.8; O2SAT 94–99; BMI 41.5
[2022-03-04 13:47] LABS: Basophils # 0.1 10^3/uL (0.0-0.1); Basophils % 0.6 %; Eosinophils # 0.1 10^3/uL (0.0-0.8); Eosinophils % 1.6 %; Hematocrit 35.8 % (37.0-47.0); Hemoglobin 11.3 g/dL (11.5-15.3); Lymphocytes # 2.3 10^3/uL (0.8-4.8); Lymphocytes % 28.5 %; Mean Corpuscular HGB Conc 31.6 g/dL (30.0-36.0); Mean Corpuscular Hemoglobin 25.1 pg (28.0-34.0); Mean Corpuscular Volume 79.6 fl (81-99); Mean Platelet Volume 11.5 fL (7.4-10.4); Monocytes # 0.7 10^3/uL (0.2-0.9); Monocytes % 8.7 %; Neutrophils # 4.84 10^3/uL (1.8-7.7); Nucleated Red Blood Cells % 0 %; Platelet Count 234 10^3/cmm (130-400); Red Cell Distribution Width 15.2 % (12.1-15.1); White Blood Count 8.1 10^3/uL (4.0-10.0)
[2022-03-04] MEDS: dextrose 5%-lactated ringers 1,000 ML 125 ML IV (14:04)
[2022-03-04] MEDS: ampicillin 2,000 MG in sodium chloride 0.9% (plus) 50 ML 100 MG IV (14:05)
[2022-03-04] MEDS: oxytocin 30 UNIT/500 ML BAG IV (16:56)
[2022-03-04] MEDS: ampicillin 1,000 MG in sodium chloride 0.9% (plus) 50 ML 100 MG IV ×2 (17:31→22:24)
[2022-03-04 18:48] LABS: Nitrazine Paper, PH Positive
[2022-03-04] MEDS: fentaNYL 50 mcg/mL INJ 2mL IVP ×2 (19:44→20:43)
[2022-03-04] MEDS: lactated ringers 1,000 ML 999 ML IV (20:42)
--- NOTE | 2022-03-04 21:00 | ANES.PREANE2 ---
Pre-Anesthetic Assessment Height/Weight: Height 1.57 m Weight 102.965 kg Temp Pulse Resp BP Pulse Ox O2 Del Method 97.9 F 84 16 114/70 95 03/05/22 02:30 03/05/22 03:30 03/05/22 03:30 03/05/22 03:30 03/05/22 03:30 03/05/22 03:30 Preop Diagnosis: IUP EPidural Familial anesthetic complications: none Was Beta Raghu taken within 24 hours: N/A Was Clonidine taken within 24 hours: N/A Social No alcohol and No tobacco Exam alert, oriented x 3, clear to auscultation bilaterally and regular rate & rhythm Airway Mallampati: Class II Dentition: full Hepatic fatty liver Metabolic Morbid Obesity Anesthetic Plan ASA status: 2 Anesthesia: Regional (specify below) Risk of > 500 ml blood loss (7ml/kg in children): Yes, adequate IV access and fluids planned Medications/Allergies Home Medications Medication Instructions Recorded Confirmed Last Taken Type cetirizine 10 mg capsule (Zyrtec) 10 mg PO DAILY 11/12/21 03/04/22 03/04/22 03:00 History cholecalciferol (vitamin D3) 10 10 mcg PO DAILY 11/12/21 03/04/22 03/03/22 17:00 History mcg (400 unit) capsule (Vitamin D3) omega 0-hfp-oor-fish oil 60 mg-90 1 cap PO DAILY 11/12/21 03/04/22 03/03/22 17:00 History mg-500 mg capsule (Fish Oil) vit no.95-ferrous 1 tab PO DAILY 11/12/21 03/04/22 03/03/22 17:00 History fumarate 28 mg-folic acid 800 mcg tablet () Allergies Allergy/AdvReac Type Severity Reaction Status Date / Time No Known Allergies Allergy Verified 05/30/21 13:26 Current Medications Generic Name Dose Route Start Last Admin Trade Name Freq PRN Reason Stop Dose Admin Hydrocodone Bitart/Acetaminophen 1 - 2 tab 03/05/22 00:44 03/05/22 02:20 Hydrocodone-Acetaminophen 5-325 Mg Tablet PO 2 tab Q6H PRN Administration MODERATE TO SEVERE PAIN Benzocaine 1 spray 03/05/22 00:44 03/05/22 01:12 Benzocaine-Menthol 78 Gm Canister TOPICAL 1 spray PRN PRN Administration PAIN Lanolin 1 applic 03/05/22 00:44 03/05/22 01:13 Lanolin Oint 7 Gm TOPICAL 1 applic PRN PRN Administration DRYNESS PFSH Anesthesia Medical History Allergic rhinitis Anxiety and depression History of Papanicolaou smear of cervix Negative for intraepithelial lesion and malignancy. Negative HPV. 10/31/2017. Migraine Family History Mother Anesthesia complication Awake but could not move or speak. Cancer Liver cancer after hepatitis c. Psychiatric illness Bipolar, manic depressive. Father Cancer Leukemia after agent orange exposure Denies family history of Diabetes CAD (coronary artery disease) Clotting disorder Dementia Hyperlipidemia Chronic kidney disease (CKD) Suicide Bleeding disorder Family history of premature coronary artery disease Lung disease Hypertension Stroke Social History Quit status (tobacco): has quit using tobacco Year quit tobacco: 05/2020 Second hand smoke exposure: No Alcohol intake: current Alcohol intake frequency: holidays/special occasions only Caregiver/support person: Yes Lives independently: Yes Household members: significant other and children Marital status: Life Partner service: No Current occupational status: employed Current occupation: [employer] History of recent travel: No Current gender identity: Female Special brittney needs: No Female Reproductive History Date of last menstrual period: 03/16/21 : 3 Data Anesthesia : 03/04/22 13:30 Short CBC 03/04/22 Range/Units 13:30 WBC 8.1 (4.0-10.0) 10^3/uL Hgb 11.3 L (11.5-15.3) g/dL Hct 35.8 L (37.0-47.0) % MCV 79.6 L (81-99) fl Plt Count 234 (130-400) 10^3/cmm Neut % (Auto) 60.0 % Neut # (Auto) 4.84 (1.8-7.7) 10^3/uL Cardiac Studies: No Data to Display Anesthesia Procedures Epidural Time Out Performed: Yes Consents Signed: Procedure Consent Consent: from patient, risks and benefits reviewed and patient agrees to proceed Lumbar Level: L3-L4 Epidural position: sitting Epidural procedure: sterile prep of area, 1% lidocaine to numb the area, 18 g needle, negative for paresthesia passed, neg for paresthesia, test dose given, 1.5% xylocaine 1:200k epi (5 cc), 0.2% Ropivacaine bolus ml (5), placed PCEA, no systemic response, sterile dressing applied, L.U.D. no apparent complications and 0.2% Ropiavacaine @ mls/hr (13) Additional Comments: DOUGLAS at 5.5 cm, threaded to 11.5 cm
[2022-03-04] MEDS: ondansetron 2 mg/ML SDV 2 mL 4 MG IVP (22:19)
[2022-03-04] MEDS: lactated ringers 1,000 ML 125 ML IV (22:41)
--- NOTE | 2022-03-04 23:05 | P.HPUD_ITS ---
Labor & Delivery H&P Update Date of Procedure: March 04, 2022 Date H&P Performed: 02/28/22 Changes to previous documentation: Spontaneous rupture membranes Admission Diagnosis: 36-year-old 3 para 2-0-0-2 at 38 weeks estimated gestational age presenting with spontaneous rupture of membranes. The rupture just prior to arrival to hospital. She was not having any contractions. Her was otherwise unremarkable. Her blood type was a positive. Her antibody screen was negative. Her 1 hour glucose screen was 142 her 3-hour glucose screen was passed. She is GBS positive. The remainder of her i nfectious disease profile was within normal limits. Related Problem List Diagnoses (1) 38 weeks gestation of : (2) Group B streptococcal carriage complicating : A&P Assessment and plan (1) 38 weeks gestation of : I anticipate routine vaginal delivery. The patient cervix is favorable. Pitocin will be initiated. Status: Acute (2) Group B streptococcal carriage complicating : Group B strep protocol initiated. Adequate antibiotic coverage received Status: Acute
[2022-03-04] MEDS: metoclopramide 5 mg/mL SDV 2 mL 10 MG IV (23:21)
--- NOTE | 2022-03-04 23:35 | P.PCNOB_ITS ---
Delivery Note: Date of delivery: March 04, 2022 Pre-delivery diagnoses: 1. 36-year-old 3 para 2-0-0-2 at 38 weeks estimated gestational age presenting with spontaneous rupture membranes 2. GBS positive Post-delivery diagnoses: Status post spontaneous vaginal delivery Procedure: Spontaneous vaginal delivery Delivering Physician: Danie Iglesias Estimated blood loss (mL): 50 Pre-Delivery Course: Patient presented to the hospital with spontaneous rupture of membranes. Group B strep protocol was initiated. 3 hours after initiating group B strep protocol Pitocin was initiated. She gradually progressed to complete without difficulty. Delivery: DELIVERY: The patient progressed to complete without difficulty. She delivered a male with a weight of 7 pound 7 ounces with Apgars of 8, 9. The baby was delivered from the LOP position and placed on the mother's abdomen. The cord was then clamped and cut. There was a nuchal cord x2 which were reduced prior to delivering the body. Terminal meconium was noted. The placenta and 3 vessel cord were delivered intact shortly thereafter. The perineum and vaginal vault were carefully examined. No lacerations were noted. Both the mother and the baby were in stable condition. Post-Delivery Status: Good History History History 2 Term 2 0 Miscarriages/Ectopic 0 Living Children 2 A&P Assessment and plan (1) 38 weeks gestation of : (2) Spontaneous vaginal delivery: I anticipate routine care. Because she delivered around midnight, she would likely go home in about 32 to 36 hours Coding Level of Care Code Acute Medical Review Coordinator for Chg Fwd Diagnoses 38 weeks gestation of Z3A.38 Spontaneous vaginal delivery O80
[2022-03-05] VITALS (10 sets, daily range): BP systolic 114–134; BP diastolic 59–84; PULSE 75–96; RESP 16; TEMP 36.2–36.6; O2SAT 95–97
[2022-03-05] MEDS: benzocaine-menthol 78 gm Canister 1 SPRAY TOPICAL (01:12)
[2022-03-05] MEDS: lanolin oint 7 gm 1 APPLIC TOPICAL (01:13)
[2022-03-05] MEDS: HYDROcodone-acetaminophen 5-325 mg Tablet PO ×4 (02:20→22:28)
--- NOTE | 2022-03-05 07:38 | PC.NURSE ---
This RN-IBCLC at bedside. Patient stated that is going well, latching with little discomfort. Infant currently sleeping. Patient stated that she would like for the latch to be assessed when wakes for next feed.
[2022-03-05] MEDS: prenatal vitamin Capsule 1 CAP PO (08:35)
[2022-03-05] MEDS: docusate sodium 100 mg Capsule PO ×2 (08:35→20:39)
[2022-03-05] MEDS: ibuprofen 800 mg tablet PO ×3 (08:35→20:39)
[2022-03-05] MEDS: metoclopramide 10 mg Tablet PO ×2 (13:26→19:25)
--- NOTE | 2022-03-05 13:33 | ANE.PACU2 ---
Inpatient post-anesthesia follow up: Airway intact: Yes Vital signs: Temperature 97.9 F Pulse Rate 75 Respiratory Rate 15 Blood Pressure 126/79 Pulse Oximetry 96 Oxygen Delivery Me thod Room Air Oxygen Flow Rate Fraction of Inspir ed Oxygen Hydration adequate: Yes Nausea and vomiting: No Pain level: 1 Mental status: Baseline
[2022-03-05] MEDS: simethicone 80 mg Chew PO (13:56)
[2022-03-05] MEDS: alum-mag-hydroxide-sime 30 mL UDC PO ×2 (13:56→22:28)
[2022-03-05 14:55] LABS: Hematocrit 32.4 % (37.0-47.0); Mean Corpuscular HGB Conc 30.9 g/dL (30.0-36.0); Mean Corpuscular Hemoglobin 25.4 pg (28.0-34.0); Mean Corpuscular Volume 82.4 fl (81-99); Mean Platelet Volume 11.2 fL (7.4-10.4); Platelet Count 206 10^3/cmm (130-400); Red Blood Count 3.93 10^6/uL (4.1-5.3); Red Cell Distribution Width 15.4 % (12.1-15.1)
--- NOTE | 2022-03-05 19:46 | P.PN_ITS ---
PASSENGER SERVICE REPRESENTATIVE Subjective Subjective: Interval history: The patient is doing well. Her bleeding has been limited. Her pain is been well controlled. She is breast-feeding well. There have been no concerns. Labor: Station: -2 Amniotic Membrane Status: Ruptured Monitor Mode: Palpation Contraction Pattern: Regular Status: Category I Vitals/I&O/Wt Last Vital Signs Temp 97.9 F 03/05/22 02:30 Pulse 84 03/05/22 03:30 Resp 16 03/05/22 03:30 BP 114/70 03/05/22 03:30 Pulse Ox 95 03/05/22 03:30 O2 Del Method 03/05/22 03:30 03/05/22 03/05/22 03/05/22 06:59 14:59 22:59 Intake Total 637.216 / 2693.617 Output Total 1000 / 1100 Balance -362.784 / 1593.617 Weight last 48 hrs Weight 227 lb Physical Exam Narrative: The patient is alert. She appears comfortable. Her heart has a regular rate and rhythm with no murmurs appreciated. Lungs are clear to auscultation bilaterally. Her fundus is firm and below the umbilicus. Urinary Catheter Management: Matute Latex: Cath Placed During This Visit: yes, but has since been removed by the nurse Reason for Continuing Indwelling Catheter: Decision to DC Catheter Urinary Catheter Date of Insertion: 03/04/22 Urinary Catheter Time of Insertion: 21:40 Date Urinary Catheter Removed: 03/04/22 Time Urinary Catheter Discontinued: 22:55 Data : 03/05/22 14:14 A&P Assessment and plan (1) Spontaneous vaginal delivery: The patient is doing very well. I anticipate she will be discharged home tomorrow if there are no further concerns. (2) 38 weeks gestation of : Attestations Medical Necessity Statement*: Routine care. Coding Level of Care Code Acute Preformer Impregnated Fabrics for Chg Fwd Diagnoses Spontaneous vaginal delivery O80 38 weeks gestation of Z3A.38
[2022-03-06] MEDS: alum-mag-hydroxide-sime 30 mL UDC PO (02:59)
[2022-03-06 03:06] VITALS: BP 120/76; PULSE 75; RESP 16; TEMP 36.5
[2022-03-06] MEDS: HYDROcodone-acetaminophen 5-325 mg Tablet PO (05:40)
--- NOTE | 2022-03-06 07:55 | P.DS_ITS ---
Discharge Providers FUEL PILOT ENGINEER Date of Admission: 03/04/22 13:38 Date of Discharge: 03/06/22 Attending Provider at Admission: Danie Iglesias MD Attending Provider at Discharge: Danie Iglesias MD Primary Care Provider: MÓNICA Killian Diagnoses at Discharge Discharge Diagnosis (1) Spontaneous vaginal delivery: Status: Acute (2) 38 weeks gestation of : Status: Acute Reason for Visit Reason for Visit: Poss SROM Hospital Course Hospital Course The patient presented to the hospital with spontaneous rupture of membranes. The patient was placed on Pitocin. She gradually progressed to 9 cm dilated. The baby began having decelerations. Her cervix was very stretchy, and we began pushing with her. She became complete after several contractions while pushing. She then had an unremarkable delivery of a healthy baby boy. Her course was unremarkable. She breast-fed well. Her bleeding was within normal limits. Her pain was well controlled. There were no concerns. Information Peripartum Data: Delivery Method: Vaginal Physical Exam Narrative: The patient is alert. She appears comfortable. Her heart has a regular rate and rhythm with no murmurs appreciated. Lungs are clear to auscultation bilaterally. Her fundus is firm and below the umbilicus. Urinary Catheter Management: Matute Latex: Cath Placed During This Visit: yes, but has since been removed by the nurse Reason for Continuing Indwelling Catheter: Decision to DC Catheter Urinary Catheter Date of Insertion: 03/04/22 Urinary Catheter Time of Insertion: 21:40 Date Urinary Catheter Removed: 03/04/22 Time Urinary Catheter Discontinued: 22:55 History History History 2 Term 2 0 Miscarriages/Ectopic 0 Living Children 2 Discharge Data Studies Completed and Pending Laboratory Results WBC 10.0 10^3/uL (4.0-10.0) 03/05/22 14:14 RBC 3.93 10^6/uL (4.1-5.3) L 03/05/22 14:14 Hgb 10.0 g/dL (11.5-15.3) L 03/05/22 14:14 Hct 32.4 % (37.0-47.0) L 03/05/22 14:14 MCV 82.4 fl (81-99) 03/05/22 14:14 MCH 25.4 pg (28.0-34.0) L 03/05/22 14:14 MCHC 30.9 g/dL (30.0-36.0) 03/05/22 14:14 RDW 15.4 % (12.1-15.1) H 03/05/22 14:14 Plt Count 206 10^3/cmm (130-400) 03/05/22 14:14 MPV 11.2 fL (7.4-10.4) H 03/05/22 14:14 Neut % (Auto) 60.0 % 03/04/22 13:30 Lymph % (Auto) 28.5 % 03/04/22 13:30 [place] % (Auto) 8.7 % 03/04/22 13:30 Eos % (Auto) 1.6 % 03/04/22 13:30 Baso % (Auto) 0.6 % 03/04/22 13:30 Neut # (Auto) 4.84 10^3/uL (1.8-7.7) 03/04/22 13:30 Lymph # (Auto) 2.3 10^3/uL (0.8-4.8) 03/04/22 13:30 [place] # (Auto) 0.7 10^3/uL (0.2-0.9) 03/04/22 13:30 Eos # (Auto) 0.1 10^3/uL (0.0-0.8) 03/04/22 13:30 Baso # (Auto) 0.1 10^3/uL (0.0-0.1) 03/04/22 13:30 Nucleated RBC % (auto) 0 % 03/04/22 13:30 Nucleated RBCs # 0.0 /100WBC 03/04/22 13:30 Vitals Last Vital Signs Temp 97.7 F 03/06/22 03:06 Pulse 75 03/06/22 03:06 Resp 16 03/06/22 03:06 BP 120/76 03/06/22 03:06 Pulse Ox 96 03/05/22 20:52 O2 Del Method 03/05/22 20:52 Discharge Plan Discharge Patient Disposition: Home Condition: Stable Prescriptions: New ibuprofen 800 mg Tablet 800 mg PO TID Qty: 45 0RF Continued cholecalciferol (vitamin D3) [Vitamin D3] 10 mcg (400 unit) Capsule 10 mcg PO DAILY Zyrtec 10 mg Capsule 10 mg PO DAILY PNV cmb#95-ferrous fumarate-FA [] 28 mg iron- 800 mcg Tablet 1 tab PO DAILY omega 5-sai-xkc-fish oil [Fish Oil] 60-90-500 mg Capsule 1 cap PO DAILY Discharge Orders: Discharge Order (Routine); Ordered 03/06/22 Ordered By: Danie Iglesias Referrals: Danie Iglesias MD [Physician] - 6 Weeks (Please cancel her appointment) Discharge Diet: Usual diet Discharge Activity: Limit activity as instructed Patient Instructions: Opioid Safety Discharge Attestations FUEL PILOT ENGINEER Time Spent in Discharge Care*: less than 30 min Coding Level of Care Code Acute Hurricane Tracker for Chg Fwd Diagnoses Spontaneous vaginal delivery O80 38 weeks gestation of Z3A.38
[2022-03-06] MEDS: ibuprofen 800 mg tablet PO (08:18)
[2022-03-06] MEDS: docusate sodium 100 mg Capsule PO (08:18)
[2022-03-06] MEDS: prenatal vitamin Capsule 1 CAP PO (08:18)
[2022-03-06] MEDS: metoclopramide 10 mg Tablet PO (08:19)
[2022-03-06 09:51] VITALS: BP 126/79; PULSE 75; RESP 15; TEMP 36.6
--- NOTE | 2022-03-06 11:03 | PC.NURSE ---
This RN-IBCLC at bedside, educated on frequency of feeds, cluster feeding, growth spurts. Demonstrated hand expression, mother was able to return demonstrate the skill.
== END 2022-03-06 09:35 | disposition home or self-care (01) | DRG 807 ==
LOC: OPOB 13:38 → OBGYN 13:38
PROVIDERS: Admitting Provider Family Medicine; PCP Nurse Practitioner Family; Visit Provider Family Medicine
DX: O99.824 Streptococcus B carrier state complicating childbirth (principal); Z37.0 Single live birth; O99.344 Other mental disorders complicating childbirth; O69.2XX0 Labor and delivery complicated by other cord entanglement, with compression, not applicable or unspecified; O77.0 Labor and delivery complicated by meconium in amniotic fluid; Z3A.38 38 weeks gestation of pregnancy; O76 Abnormality in fetal heart rate and rhythm complicating labor and delivery; F41.8 Other specified anxiety disorders
CPT/HCPCS: 12345; 36415; 51702; 59025; 59409; 83986; 85025; 85027; 96374; 96376; 98960; 99211; J0290; J2405; J2765; J2795; J3010; J8597

== ENCOUNTER 2022-08-18 02:40 | Emergency (ER) | payer OTHER, MEDICAID, SELFPAY ==
[2022-08-18 03:12] VITALS: BP 121/82; PULSE 71; RESP 18; TEMP 36.7; O2SAT 97; BMI 35.3
--- NOTE | 2022-08-18 04:22 | W.ED.ABDPA2 ---
HPI - Abdominal Pain General: Chief Complaint: Abdominal Pain Stated Complaint: abd pain radiating into back, n/v Time Seen by Provider: 08/18/22 03:25 History of Present Illness: 37-year-old female with epigastric pain radiating into her back. She had an episode of this this evening, it is decreased in intensity to some degree. This is her fourth episode in as many days. She is nauseated. She has not vomited. No diarrhea. No fever. No history of abdominal surgery. She is not MD elicited complaint: abdominal pain Pertinent past history: none Onset (ago): day(s) Pain Consistency: intermittent Location: Epigastric Quality: stabbing Radiation: back Migration to: no migration Relieving factors: nothing Associated Symptoms: Reports nausea and poor appetite; Denies bloating, coffee ground emesis, diarrhea, fever(s) and hematochezia Review of Systems Const: Denies: fever(s) Card: Denies: chest pain Resp: Denies: dyspnea GI: Reports: nausea; Denies: coffee ground emesis, diarrhea, bloating or hematochezia Musc: Reports: back pain PFSH ED PFSH: Medical History Allergic rhinitis Anxiety and depression History of Papanicolaou smear of cervix Negative for intraepithelial lesion and malignancy. Negative HPV. 10/31/2017. Migraine Family History Mother Anesthesia complication Awake but could not move or speak. Cancer Liver cancer after hepatitis c. Psychiatric illness Bipolar, manic depressive. Father Cancer Leukemia after agent orange exposure Denies family history of Diabetes CAD (coronary artery disease) Clotting disorder Dementia Hyperlipidemia Chronic kidney disease (CKD) Suicide Bleeding disorder Family history of premature coronary artery disease Lung disease Hypertension Stroke Social History Quit status (tobacco): has quit using tobacco Year quit tobacco: 05/2020 Second hand smoke exposure: No Alcohol intake: current Alcohol intake frequency: holidays/special occasions only Caregiver/support person: Yes Lives independently: Yes Household members: significant other and children Marital status: Life Partner service: No Current occupational status: employed Current occupation: [employer] Current gender identity: Female Special brittney needs: No Physical Exam Const: COMMON NORMALS: no acute distress GENERAL APPEARANCE: cooperative; not ill appearing and not frail appearing HENMT: COMMON NORMALS: normocephalic, atraumatic and Normal external nose present HEAD & SCALP: normocephalic and atraumatic FACE & SINUS: normal facial exam and face symmetric NOSE: Normal external nose present Eye: COMMON NORMALS: Equal, round and reactive pupils present and EOMs intact bilaterally PUPIL: Yes Equal, round and reactive pupils present Neck/C-Spine: GENERAL: Yes trachea midline Chest: CHEST: Yes Symmetrical chest wall rise Resp: COMMON NORMALS: normal respiratory effort, No retractions, No use of accessory muscles and clear to auscultation bilaterally AUSCULTATION: clear to auscultation bilaterally Cardio: COMMON NORMALS: regular rate and regular rhythm RATE: regular rate RHYTHM: regular rhythm GI: COMMON NORMALS: Normal to inspection, nondistended, normoactive bowel sounds present PALPATION: Yes Tenderness to palpation present (GI) (Epigastric) Extremity: COMMON NORMALS: no pedal edema Neuro: MARTY COMA SCALE: document GCS findings [place] coma scale eye opening: Spontaneous [place] coma scale verbal response: Orientated Marty coma scale motor response: Obey commands [place] coma scale total score: 15 SENSORY EXAM: Yes extremities (intact) Psych: COMMON NORMALS: speech normal SPEECH: Yes normal speech Skin: COMMON NORMALS: no rashes or lesions noted GENERAL SKIN EXAM: no rashes or lesions noted Course Vital Signs: Vital signs: Vital Signs Temperature 97.8 F 08/18/22 05:00 Pulse Rate 58 L 08/18/22 05:00 Respiratory Rate 14 08/18/22 05:00 Blood Pressure 103/71 08/18/22 05:00 Pulse Oximetry 97 08/18/22 05:00 Oxygen Delivery Me thod 08/18/22 05:00 MDM - Abdominal Pain Medical Decision Making Vitals are stable. CMP shows the sodium 130 and is otherwise not remarkable. CRP is 8. Lactate 0.7. White blood cell count is 7.3. UA is negative. CT shows There's still stomach mucosal thickening. Likely the cause of her symptoms. She'll be treated for this. To return for new or worsening symptoms. Lab Data 08/18/22 04:18 08/18/22 04:18 Labs/Radiology: Radiology Impressions Abdomen/Pelvis CT 08/18/22 04:42 IMPRESSION: 1. Normal appendix. 2. Possible thickened mucosa/wall in the distal stomach, see above discussion. 3. No visible gallstones by CT. 4. Somewhat distended urinary bladder. 5. 6 mm right intrarenal calculus. No significant hydronephrosis or visible ureteral calculus. 6. Other findings discussed above. Laboratory Results WBC 7.3 10^3/uL (4.0-10.0) 08/18/22 04:18 RBC 4.51 10^6/uL (4.1-5.3) 08/18/22 04:18 Hgb 13.2 g/dL (11.5-15.3) 08/18/22 04:18 Hct 40.2 % (37.0-47.0) 08/18/22 04:18 MCV 89.1 fl (81-99) 08/18/22 04:18 MCH 29.3 pg (28.0-34.0) 08/18/22 04:18 MCHC 32.8 g/dL (30.0-36.0) 08/18/22 04:18 RDW 11.8 % (12.1-15.1) L 08/18/22 04:18 Plt Count 282 10^3/cmm (130-400) 08/18/22 04:18 MPV 10.2 fL (7.4-10.4) 08/18/22 04:18 Neut % (Auto) 44.9 % 08/18/22 04:18 Lymph % (Auto) 42.0 % 08/18/22 04:18 Rains % (Auto) 8.7 % 08/18/22 04:18 Eos % (Auto) 3.6 % 08/18/22 04:18 Baso % (Auto) 0.7 % 08/18/22 04:18 Neut # (Auto) 3.26 10^3/uL (1.8-7.7) 08/18/22 04:18 Lymph # (Auto) 3.1 10^3/uL (0.8-4.8) 08/18/22 04:18 Rains # (Auto) 0.6 10^3/uL (0.2-0.9) 08/18/22 04:18 Eos # (Auto) 0.3 10^3/uL (0.0-0.8) 08/18/22 04:18 Baso # (Auto) 0.1 10^3/uL (0.0-0.1) 08/18/22 04:18 Nucleated RBC % (auto) 0 % 08/18/22 04:18 Nucleated RBCs # 0.0 /100WBC 08/18/22 04:18 Sodium 130 mmol/L (136-145) L 08/18/22 04:18 Potassium 3.6 mmol/L (3.5-5.1) 08/18/22 04:18 Chloride 95 mmol/L (98-107) L 08/18/22 04:18 Carbon Dioxide 25 mmol/L (22-29) 08/18/22 04:18 Anion Gap 13.6 (5-19) 08/18/22 04:18 BUN 16 mg/dL (6-20) 08/18/22 04:18 Creatinine 0.5 mg/dL (0.5-0.9) 08/18/22 04:18 GFR Calculation 140.4 mL/min (90-130) H 08/18/22 04:18 Glucose 82 mg/dL (65-115) 08/18/22 04:18 Calculated Osmolality 270 mOsm/kg (285-295) L 08/18/22 04:18 Lactate 0.7 mmol/L (0.5-2.2) 08/18/22 04:18 Calcium 10.4 mg/dL (8.5-10.5) 08/18/22 04:18 Total Bilirubin 0.2 mg/dL (0.15-1.2) 08/18/22 04:18 AST 16 U/L (0-32) 08/18/22 04:18 ALT 16 U/L (0-33) 08/18/22 04:18 Alkaline Phosphatase 102 U/L (35-105) 08/18/22 04:18 C-Reactive Protein 7.7 mg/L (0.0-4.9) H 08/18/22 04:18 Total Protein 7.2 g/dL (6.6-8.7) 08/18/22 04:18 Albumin 4.4 g/dL (3.5-5.2) 08/18/22 04:18 Globulin 2.8 g/dL (1.3-4.6) 08/18/22 04:18 Lipase 38 U/L (13-60) 08/18/22 04:18 HCG, Qual Negative (Negative) 08/18/22 04:18 Urine Color Yellow (Yellow) 08/18/22 03:55 Urine Appearance Clear (CLEAR) 08/18/22 03:55 Urine pH 6.5 (5-7) 08/18/22 03:55 Ur Specific [place] 1.010 (1.005-1.030) 08/18/22 03:55 Urine Protein Neg (Negative) 08/18/22 03:55 Urine Glucose (UA) Norm (Normal) 08/18/22 03:55 Urine Ketones Negative (Negative) 08/18/22 03:55 Urine Blood Neg (Negative) 08/18/22 03:55 Urine Nitrate Negative (Negative) 08/18/22 03:55 Urine Bilirubin Neg (Negative) 08/18/22 03:55 Urine Urobilinogen Norm mg/dL (Negative) 08/18/22 03:55 Ur Leukocyte Esterase Negative (Negative) 08/18/22 03:55 Discharge Plan Discharge Patient Disposition: Home Clinical Impression: Epigastric abdominal pain, Gastritis Condition: Stable Prescriptions: New ondansetron 4 mg film 4 mg PO DAILY PRN (Reason: nausea and vomiting) Qty: 10 0RF Prevacid 30 mg capsule,delayed release(DR/EC) 30 mg PO DAILY Qty: 30 0RF sucralfate 1 gram tablet 1 g PO TID 28 Days Qty: 84 0RF No Action cholecalciferol (vitamin D3) [Vitamin D3] 10 mcg (400 unit) Capsule 10 mcg PO DAILY Zyrtec 10 mg Capsule 10 mg PO DAILY PNV cmb#[id number] fumarate-FA [] 28 mg iron- 800 mcg Tablet 1 tab PO DAILY omega 8-aoy-[id number]-fish oil [Fish Oil] 60-90-500 mg Capsule 1 cap PO DAILY ibuprofen 800 mg Tablet 800 mg PO TID Qty: 45 0RF Discharge Orders: Discharge ED (Routine); Ordered 08/18/22 Ordered By: Amos Patel Referrals: Esther Hoffman FNP [Primary Care Provider] - 1-3 days Patient Instructions: Gastritis (ED), Opioid Safety, Pain Management Activity Restrictions/Additional Instructions: Medication as directed. Follow-up with your doctor. Coding Level of Care Code ED Electronics Processing Supervisor for Chg Fwd
[2022-08-18] MEDS: lidocaine 2% viscous 15 ML, aluminum-mag hydrox-simethicon 30 ML, sucralfate oral liq 1 GM PO (04:32)
[2022-08-18 04:33] LABS: Add Urine Microscopic? NO; Charge for UA Resulting for Rev
[2022-08-18 04:33] LABS: Basophils # 0.1 10^3/uL (0.0-0.1); Basophils % 0.7 %; Eosinophils # 0.3 10^3/uL (0.0-0.8); Eosinophils % 3.6 %; Hematocrit 40.2 % (37.0-47.0); Hemoglobin 13.2 g/dL (11.5-15.3); Lymphocytes # 3.1 10^3/uL (0.8-4.8); Mean Corpuscular HGB Conc 32.8 g/dL (30.0-36.0); Mean Corpuscular Hemoglobin 29.3 pg (28.0-34.0); Mean Corpuscular Volume 89.1 fl (81-99); Mean Platelet Volume 10.2 fL (7.4-10.4); Monocytes # 0.6 10^3/uL (0.2-0.9); Monocytes % 8.7 %; Neutrophils # 3.26 10^3/uL (1.8-7.7); Neutrophils % 44.9 %; Nucleated Red Blood Cells % 0 %; Platelet Count 282 10^3/cmm (130-400); Red Blood Count 4.51 10^6/uL (4.1-5.3); Red Cell Distribution Width 11.8 % (12.1-15.1); White Blood Count 7.3 10^3/uL (4.0-10.0)
[2022-08-18] MEDS: sodium chloride 0.9% 1,000 ML 999 ML IV (04:37)
[2022-08-18] MEDS: ondansetron 2 mg/ML SDV 2 mL 4 MG IVP (04:39)
[2022-08-18] MEDS: morphine 4 mg/mL SDV 1 mL IVP (04:42)
--- NOTE | 2022-08-18 04:42 | CTR_ITS ---
PROCEDURE INFORMATION: Exam: CT Abdomen And Pelvis With Contrast Exam date and time: 08/18/2022 5:28 AM Age: 37 years old Clinical indication: Abdominal pain; Epigastric; Additional info: Epigastric abdominal pain TECHNIQUE: Imaging protocol: Computed tomography of the abdomen and pelvis with contrast. Radiation optimization: All CT scans at this facility use at least one of these dose optimization techniques: automated exposure control; mA and/or kV adjustment per patient size (includes targeted exams where dose is matched to clinical indication); or iterative reconstruction. Contrast material: OMNI 350; Contrast volume: 100 ml; Contrast route: INTRAVENOUS (IV); REPORTING DATA: Count of CT and Cardiac NM exams in prior 12 months: This patient has received 0 known CTs and 0 known cardiac nuclear medicine studies in the 12 months prior to the current study. COMPARISON: No relevant prior studies available. RADIATION DOSE METRICS: Total DLP (mGy-cm): 791.72 FINDINGS: Lungs: The lung bases are clear. Liver: Unremarkable. Gallbladder and bile ducts: No visible gallstones or other definite gallbladder abnormality by CT. Ultrasound would be more sensitive for detecting gallstones, if clinically needed. No biliary tree dilation. Pancreas: Unremarkable. Spleen: Unremarkable. Adrenal glands: Unremarkable. Kidneys and ureters: 6 mm right upper pole intrarenal calculus. No significant hydronephrosis of either kidney. No visible ureteral calculus. No perinephric fluid. The kidneys enhance homogeneously. Stomach and bowel: Possibility of somewhat thickened mucosa/wall in the distal stomach. This is a nonspecific appearance, and could be transient on CT, but could also represent evidence for gastritis or peptic ulcer disease. Please correlate clinically. No significant bowel distention. There are no CT findings to strongly suggest diverticulitis. Appendix: The appendix is visualized and appears normal. Intraperitoneal space: No free intraperitoneal air, or ascites. Vasculature: No evidence for abdominal aortic aneurysm. Lymph nodes: No retroperitoneal adenopathy. Urinary bladder: The urinary bladder appears somewhat distended at the time of scanning. The urinary bladder measures 12.5 x 7.5 x 11 cm, estimated volume approximately 540 cc. Please correlate clinically. No visible calculus in the urinary bladder. No abnormal bladder wall thickening. Reproductive: Essentially unremarkable for age. Bones/joints: No significant acute finding. Soft tissues: Small umbilical hernia, containing only fat. CT/CT abdomen pelvis w con* [id number] IMPRESSION: 1. Normal appendix. 2. Possible thickened mucosa/wall in the distal stomach, see above discussion. 3. No visible gallstones by CT. 4. Somewhat distended urinary bladder. 5. 6 mm right intrarenal calculus. No significant hydronephrosis or visible ureteral calculus. 6. Other findings discussed above.
[2022-08-18] MEDS: ketorolac 30 mg/mL INJ 15 MG IVP (04:46)
[2022-08-18 04:54] LABS: Alanine Aminotransferase 16 U/L (0-33); Albumin Level 4.4 g/dL (3.5-5.2); Alkaline Phosphatase 102 U/L (35-105); Anion Gap 13.6 (5-19); Aspartate Amino Transferase 16 U/L (0-32); Blood Urea Nitrogen 16 mg/dL (6-20); C Reactive Protein 7.7 mg/L (0.0-4.9); Calcium 10.4 mg/dL (8.5-10.5); Carbon Dioxide 25 mmol/L (22-29); Chloride 95 mmol/L (98-107); Globulin 2.8 g/dL (1.3-4.6); Glomerular Filtration Rate 140.4 mL/min (90-130); Glucose 82 mg/dL (65-115); Lipase 38 U/L (13-60); Osmolality Calculated 270 mOsm/kg (285-295); Potassium 3.6 mmol/L (3.5-5.1); Sodium 130 mmol/L (136-145); Total Bilirubin 0.2 mg/dL (0.15-1.2); Total Protein 7.2 g/dL (6.6-8.7)
[2022-08-18 04:55] LABS: Lactate (Lactic Acid level) 0.7 mmol/L (0.5-2.2)
[2022-08-18 05:00] VITALS: BP 103/71; PULSE 58; RESP 14; TEMP 36.6; O2SAT 97
[2022-08-18 05:20] LABS: HCG, Serum Qual Negative (Negative)
[2022-08-18 05:46] LABS: Urine Appearance Clear (CLEAR); Urine Color Yellow (Yellow); pH Urine 6.5 (5-7)
[2022-08-18 05:47] LABS: Bilirubin Urine Neg (Negative); Blood Urine Neg (Negative); Glucose Urine UA Norm (Normal); Ketones Urine Negative (Negative); Leukocyte Esterase Urine Negative (Negative); Nitrate Urine Negative (Negative); Protein Urine Neg (Negative); Urobilinogen Urine Norm (Negative)
== END 2022-08-18 06:48 | disposition home or self-care (01) ==
PROVIDERS: Emergency Provider Emergency Medicine; PCP Nurse Practitioner Family
DX: K29.70 Gastritis, unspecified, without bleeding (principal); Z87.891 Personal history of nicotine dependence
CPT/HCPCS: 74177; 80053; 81003; 83605; 83690; 84703; 85025; 86140; 96361; 96374; 96375; 99285; J1885; J2270; J2405; J7030; Q9967

== ENCOUNTER → 2023-04-07 07:50 | Outpatient (BNVA) | payer OTHER, MEDICAID, SELFPAY | PROVIDERS: PCP Nurse Practitioner Family; Visit Provider Obstetrics & Gynecology | DX: D25.9 Leiomyoma of uterus, unspecified (principal); R10.2 Pelvic and perineal pain | CPT/HCPCS: 76830 ==

== ENCOUNTER → 2023-04-23 11:02 | Outpatient (BNVA) | payer OTHER, MEDICAID, SELFPAY | PROVIDERS: PCP Nurse Practitioner Family; Visit Provider Nurse Practitioner Family | DX: R73.9 Hyperglycemia, unspecified (principal); G43.009 Migraine without aura, not intractable, without status migrainosus; R53.83 Other fatigue; L65.9 Nonscarring hair loss, unspecified; Z13.6 Encounter for screening for cardiovascular disorders; R53.82 Chronic fatigue, unspecified; G47.00 Insomnia, unspecified; M54.50 Low back pain, unspecified; G89.29 Other chronic pain; N20.0 Calculus of kidney | CPT/HCPCS: 80053; 80061; 82306; 82607; 83036; 83735; 84439; 84443; 84481; 85025; 86376 ==

== ENCOUNTER → 2023-08-13 13:40 | Outpatient (BNVA) | payer OTHER, MEDICAID, SELFPAY | PROVIDERS: PCP Nurse Practitioner Family; Visit Provider Nurse Practitioner Family | DX: R05.9 Cough, unspecified (principal) | CPT/HCPCS: 71046 ==

== ENCOUNTER 2023-10-29 13:46 | Observation (INO) | payer OTHER, SELFPAY ==
--- NOTE | 2023-10-22 08:54 | ANES.PREANE2 ---
Pre-Anesthetic Assessment Height/Weight: Height 1.57 m Operation Date: 10/29/23 12:00 Proposed Procedures p Total Vaginal Hysterectomy 56513, D25.9, N93.9, N94.6, R10.2(Not Applicable) - Raj Sahni MD Familial anesthetic complications: Mother experienced awareness during an oral surgery and then ended up w/ nausea and fatigue of several months duration after a 2nd oral surgery Social No alcohol and No tobacco former smoker Exam alert, oriented x 3, clear to auscultation bilaterally and regular rate & rhythm Airway Mallampati: Class III Dentition: full Anesthetic Plan ASA status: 1 Anesthesia: General Risk of > 500 ml blood loss (7ml/kg in children): No Medications/Allergies Home Medications Medication Instructions Recorded Confirmed Last Taken Type cetirizine 10 mg capsule (Zyrtec) 10 mg PO DAILY 11/12/21 10/22/23 10/22/23 History vitamin B complex 1 tab PO DAILY 08/29/22 10/22/23 10/22/23 History ergocalciferol (vitamin D2) 1,250 See Rx Instructions .Route 07/14/23 10/22/23 Unknown Rx mcg (50,000 unit) capsule .COMPLEX #4 caps albuterol sulfate 90 mcg/actuation 2 puff inhalation Q6H PRN 07/21/23 10/22/23 Unknown Rx aerosol inhaler (Ventolin HFA) shortness of breath or wheezing #8.5 grams ubrogepant 100 mg tablet (Ubrelvy) 100 mg PO ONCE PRN migraine 08/13/23 10/22/23 10/22/23 Rx headache #10 tabs buspirone 10 mg tablet 10 mg PO TID #90 tabs 09/09/23 10/22/23 10/22/23 Rx venlafaxine 150 mg 150 mg PO DAILY #90 caps 09/09/23 10/22/23 10/22/23 Rx capsule,extended release 24 hr amitriptyline 50 mg tablet 50 mg PO DAILY #90 tabs 09/19/23 10/22/23 10/22/23 Rx zolpidem 10 mg tablet (Ambien) 10 mg PO .qhs #30 tabs 09/19/23 10/22/23 10/22/23 Rx cyclobenzaprine 10 mg tablet See Rx Instructions .Route 10/09/23 10/22/23 Unknown Rx .COMPLEX #90 tabs phentermine 37.5 mg tablet 37.5 mg PO DAILY #30 tabs 10/15/23 10/22/23 10/20/23 Rx Allergies Allergy/AdvReac Type Severity Reaction Status Date / Time topiramate [From Topamax] Allergy neuropathy Verified 10/22/23 08:09 [facility] Anesthesia Medical History History of Papanicolaou smear of cervix Negative for intraepithelial lesion and malignancy. Negative HPV. 10/31/2017. Allergic rhinitis Migraine Anxiety and depression Family History Mother Anesthesia complication Awake but could not move or speak. Cancer Liver cancer after hepatitis c. Psychiatric illness Bipolar, manic depressive. Father Cancer Leukemia after agent orange exposure Denies family history of Diabetes CAD (coronary artery disease) Clotting disorder Dementia Hyperlipidemia Chronic kidney disease (CKD) Suicide Bleeding disorder Family history of premature coronary artery disease Lung disease Hypertension Stroke Social History Quit status (tobacco/nicotine): has quit using Year quit tobacco: 05/2020 Second hand smoke exposure: No Alcohol intake: current Alcohol intake frequency: holidays/special occasions only Substance/Drug Use: never Caregiver/support person: Yes Lives independently: Yes Household members: significant other and children Marital status: Life Partner service: No Current occupational status: employed Current occupation: [employer] Current gender identity: Female Special brittney needs: No Data Anesthesia Cardiac Studies: No Data to Display
[2023-10-29] VITALS (22 sets, daily range): BP systolic 118–143; BP diastolic 72–90; PULSE 88–116; RESP 9–21; TEMP 36.3–36.6; O2SAT 90–100; BMI 39.3
[2023-10-29 11:19] LABS: OR HCG Qualitative Urine Negative (Negative)
[2023-10-29] MEDS: sodium chloride 0.9% 1,000 ML 30 ML IV (11:35)
[2023-10-29] MEDS: scopolamine 1.5 Patch 1 PATCH TRANSDERMA (11:35)
[2023-10-29 11:36] LABS: Add Urine Microscopic? NO; Charge for UA Resulting for Rev
[2023-10-29] MEDS: sodium chloride 0.9% 500 ML IV (11:36)
[2023-10-29 11:41] LABS: Basophils # 0.1 10^3/uL (0.0-0.1); Basophils % 0.9 %; Eosinophils # 0.3 10^3/uL (0.0-0.8); Eosinophils % 3.7 %; Hematocrit 40.2 % (36-47); Lymphocytes # 2.8 10^3/uL (0.8-4.8); Mean Corpuscular HGB Conc 32.8 g/dL (30-55); Mean Corpuscular Hemoglobin 28.4 pg (27-33); Mean Corpuscular Volume 86.5 fl (85-98); Mean Platelet Volume 9.8 fL (7.4-10.4); Monocytes # 0.6 10^3/uL (0.2-0.9); Monocytes % 7.2 %; Neutrophils # 4.03 10^3/uL (1.8-7.7); Neutrophils % 51.8 %; Nucleated Red Blood Cells % 0 %; Platelet Count 312 10^3/cmm (157-399); Red Blood Count 4.65 10^6/uL (3.85-5.65); Red Cell Distribution Width 12.6 % (12.1-15.1); White Blood Count 7.78 10^3/uL (3.29-11.43)
--- NOTE | 2023-10-29 11:41 | W.PM.OPSUD ---
Surgery/Procedure H&P Update DATE OF PROCEDURE: October 29, 2023 DATE H&P PERFORMED: 10/16/23 H&P UPDATE INFORMATION: I have reviewed H&P completed within last 30 days, I have examined patient prior to procedure and No changes to prior documentation PREOP DIAGNOSIS: Uterine fibroid, abnormal uterine bleeding, pelvic pain, dysmenorrhea PLANNED PROCEDURE: Operation Date: 10/29/23 12:00 Proposed Procedures p Total Vaginal Hysterectomy 87590, D25.9, N93.9, N94.6, R10.2(Not Applicable) - Raj Sahni MD
--- NOTE | 2023-10-29 11:46 | P.ANESUD_ITS ---
Pre-Anesthetic Update Pre-Anesthetic Assessment: Date of Surgery/Procedure: 10/29/23 Preop Cornelia gnosis: Uterine fibroid, abnormal uterine bleeding, pelvic pain, dysmenorrhea Proposed Procedure: Operation Date: 10/29/23 12:00 Proposed Procedures p Total Vaginal Hysterectomy 74812, D25.9, N93.9, N94.6, R10.2(Not Applicable) - Raj Sahni MD Any changes to Pre-Anesthetic Assessment?: No Last Intake: Intake Last Liquid Date 10/28/23 Last Liquid Time 19:00 Last Solid Date 10/28/23 Last Solid Time 19:00 Labs Last 48hrs: Short CBC 10/29/23 Range/Units 11:20 WBC 7.78 (3.29-11.43) 10^ 3/uL Hgb 13.20 (11.27-16.99) g/ dL Hct 40.2 (36-47) % MCV 86.5 (85-98) fl Plt Count 312 (157-399) 10^3/c mm Neut % (Auto) 51.8 % Neut # (Auto) 4.03 (1.8-7.7) 10^3/u L Vitals: Temperature 97.7 F 10/29/23 11:12 Temperature Source Temporal Artery S can 10/29/23 11:12 Pulse Rate 88 10/29/23 11:12 Respiratory Rate 18 10/29/23 11:12 Blood Pressure 127/83 10/29/23 11:12 Blood Pressure [place] n 97 10/29/23 11:12 Pulse Oximetry 95 10/29/23 11:12 Oxygen Delivery Me thod Room Air 10/29/23 11:20 Exam: Pre-Anes Outpt Exam: alert, oriented x 3, clear to auscultation bilaterally and regular rate & rhythm Cardiac Studies: No Data to Display
[2023-10-29 11:52] LABS: Bilirubin Urine Neg (Negative); Blood Urine Neg (Negative); Glucose Urine UA Norm (Normal); Ketones Urine 1+ (Negative); Leukocyte Esterase Urine Negative (Negative); Nitrate Urine Negative (Negative); Protein Urine Neg (Negative); Urine Appearance Clear (CLEAR); Urine Color Yellow (Yellow); Urobilinogen Urine Norm (Negative); pH Urine 5 (5-7)
[2023-10-29 12:01] LABS: Alanine Aminotransferase 17 U/L (0-33); Albumin Level 4.4 g/dL (3.5-5.2); Alkaline Phosphatase 91 U/L (35-105); Anion Gap 16.1 (5-19); Aspartate Amino Transferase 20 U/L (0-32); Blood Urea Nitrogen 12 mg/dL (6-20); Calcium 8.9 mg/dL (8.5-10.5); Carbon Dioxide 22 mmol/L (22-29); Chloride 105 mmol/L (98-107); Creatinine Clr Calc Pharmacy 212.0028; Globulin 2.9 g/dL (1.3-4.6); Glomerular Filtration Rate 180.6 mL/min (90-130); Glucose 88 mg/dL (65-115); Osmolality Calculated 287 mOsm/kg (285-295); Potassium 4.1 mmol/L (3.5-5.1); Sodium 139 mmol/L (136-145); Total Bilirubin 0.2 mg/dL (0.15-1.2); Total Protein 7.3 g/dL (6.6-8.7)
[2023-10-29] MEDS: ceFOXitin 2,000 MG in sodium chloride 0.9% (plus) 50 ML 100 MG IV (12:07)
[2023-10-29] MEDS: lidocaine-epi 2% PF 1:200,000 20 mL SDV 10 ML XX (12:36)
--- NOTE | 2023-10-29 13:40 | PM.OP ---
Operative Report Date of procedure: October 29, 2023 Pre-op diagnosis: Uterine fibroid Pelvic pain Dysmenorrhea Abnormal uterine bleeding Post-op diagnosis: same Post-op findings: Enlarged uterus Procedure done: Total vaginal hysterectomy Specimens removed/disposition: Uterus Surgeon: Raj Sahni MD Estimated blood loss (mL): 300 IV fluids (mL): 800 Urine output (mL): 400 Complications: None Condition: stable Disposition: PACU Procedure: After informed consent and risks, benefits, indications and alternatives reviewed with the patient was taken to the operating room. The patient was placed in dorsal lithotomy position prepped, and draped in the usual sterile fashion. The pre-procedure timeout verifying the correct patient, procedure, site and side, could not requirements was performed and acknowledge by the OR team. A Matute catheter was placed. A Bookwalter vaginal retractor was placed into the vagina in usual manner visualize the cervix. Cervix was grasped with a single tooth tenaculum and circumferentially infiltrated with 2% lidocaine with epinephrine. Then cervix was circumferentially incised with bovie and the bladder was dissected off the pubovesical cervical fascia anteriorly with a sponge stick and Metzenbaum scissors. The anterior peritoneal reflection was identified and the anterior cul-de-sac was entered sharply with Metzenbaum scissors. The same procedure was performed posteriorly and a posterior colpotomy was made through the posterior cul-de-sac space without difficulty and the posterior blade of the Bookwalter vaginal retractor was advanced posteriorly into the cul-de-sac. At this time, the left and right uterosacral ligaments were isolated and ligated with 0 Vicryl. The LigaSure device was placed over the uterosacral ligaments on either side and was then used in a serial fashion up through the cardinal ligaments bilaterally cross-clamped, cut, and sealed with the LigaSure device. Finally, the uterine arteries were cross-clamped, cut, sealed and ligated with the LigaSure device. Hemostasis was assured. The broad ligaments were then serially clamped, sealed and cut with the LigaSure device on both sides. Excellent hemostasis was visualized. Both cornua were clamped, sealed and cut with the LigaSure device. Then the pedicles were then suture ligated with excellent hemostasis. The uterus was excised and submitted for pathologic evaluation. No other abnormalities were noted in the pelvic cavity. The peritoneum was then closed in a pursestring fashion with 0 Vicryl suture. Pérez hernandez IV. the vaginal cuff angles were closed with [id number] #0 Vicryl suture on both sides and transfixed with the ipsilateral cardinal and uterosacral ligaments. The remainder of the vaginal cuff was closed with #0 Vicryl in a running locked fashion. At this time, instruments were removed from the vagina at hemostasis assured. Matute catheter was then noticed yielding clear magda urine. The patient was taken out of dorsal lithotomy position and awakened from the general anesthesia. The patient tolerated the procedure well and was taken to the PACU recovery room in a stable condition. Sponge, lap, needle and instruments counts were correct x3.
[2023-10-29] MEDS: fentaNYL 50 mcg/mL INJ 2mL IVP ×2 (14:06→14:16)
[2023-10-29] MEDS: HYDROmorphone 1 mg/mL INJ 1 mL 0.5 MG IVP (14:26)
[2023-10-29] MEDS: BuSPIRONE 10 mg Tablet PO ×2 (15:28→20:33)
[2023-10-29] MEDS: ketorolac 30 mg/mL INJ IVP ×2 (15:28→20:33)
[2023-10-29] MEDS: HYDROcodone-acetaminophen 5-325 mg Tablet PO ×2 (15:28→22:11)
[2023-10-29] MEDS: dextrose 5%-lactated ringers 1,000 ML 125 ML IV ×2 (15:29→22:56)
--- NOTE | 2023-10-29 15:45 | ANE.PACU2 ---
Inpatient post-anesthesia follow up: Airway intact: Yes Vital signs: Temperature 97.5 F Pulse Rate 98 Respiratory Rate 16 Blood Pressure 118/72 Pulse Oximetry 95 Oxygen Delivery Me thod Room Air Oxygen Flow Rate 3 Fraction of Inspir ed Oxygen Hydration adequate: Yes Nausea and vomiting: No Pain level: 3 Mental status: Baseline
[2023-10-29] MEDS: cyclobenzaprine 10 mg Tablet PO (16:19)
[2023-10-29] MEDS: docusate sodium 100 mg Capsule PO (17:14)
[2023-10-29] MEDS: acetaminophen 325 mg Tablet 650 MG PO (17:20)
[2023-10-29] MEDS: amitriptyline 25 mg Tablet 50 MG PO (20:32)
[2023-10-29] MEDS: venlafaxine ER (24HR) 150 mg Capsule PO (20:33)
[2023-10-29] MEDS: zolpidem 5 mg Tablet PO (20:33)
--- NOTE | 2023-10-29 22:59 | PC.NURSE ---
Took over pt care at this time. Pt is resting in bed, pain controlled. Tolerating a diet. IVF running, silver draining. at the bedside, call light is within reach.
[2023-10-30] VITALS: BP 95/60; PULSE 94; RESP 17; TEMP 36.5; O2SAT 93
[2023-10-30 02:10] LABS: Hematocrit 35.3 % (36-47); Mean Corpuscular HGB Conc 32.6 g/dL (30-55); Mean Corpuscular Hemoglobin 28.7 pg (27-33); Mean Platelet Volume 9.9 fL (7.4-10.4); Platelet Count 324 10^3/cmm (157-399); Red Blood Count 4.01 10^6/uL (3.85-5.65); Red Cell Distribution Width 12.4 % (12.1-15.1); White Blood Count 12.79 10^3/uL (3.29-11.43)
[2023-10-30] MEDS: ketorolac 30 mg/mL INJ IVP ×2 (03:44→08:25)
[2023-10-30 04:00] VITALS: BP 126/72; PULSE 82; RESP 17; TEMP 36.8; O2SAT 96
[2023-10-30] MEDS: dextrose 5%-lactated ringers 1,000 ML 125 ML IV (06:01)
[2023-10-30] MEDS: HYDROcodone-acetaminophen 5-325 mg Tablet PO (06:01)
[2023-10-30 07:32] VITALS: PULSE 97; RESP 15; O2SAT 96
[2023-10-30 08:00] VITALS: BP 129/78; PULSE 86; RESP 16; TEMP 36.7; O2SAT 96
[2023-10-30] MEDS: docusate sodium 100 mg Capsule PO (08:12)
[2023-10-30] MEDS: BuSPIRONE 10 mg Tablet PO (08:12)
[2023-10-30] MEDS: cetirizine 10 mg Tablet PO (08:12)
--- NOTE | 2023-10-30 10:01 | P.DS_ITS ---
Discharge Providers BEAN VINER Date of Admission: 10/29/23 13:46 Date of Discharge: 10/30/23 Attending Provider at Admission: Raj Sahni MD Attending Provider at Discharge: Raj Sahni MD Primary Care Provider: MÓNICA Killian Reason for Visit Reason for Visit: D25.9 Hospital Course Hospital Course Mrs. Liang 38-year-old female G2, P2 with a history of abnormal uterine bleeding, pelvic pain and uterine fibroids. Was admitted for planned total vaginal hysterectomy. The total vaginal hysterectomy was performed without complication. Overnight observation was uneventful. She is afebrile and hemodynamically stable postoperative day 1. Tolerating diet well. Ambulating without difficulty. PVR within normal limits. She was counseled regarding pelvic rest for 6 weeks (no sex, no tampons, no vaginal douches). Return to the emergency room if any fever, increased bleeding or pain. Physical Exam Narrative: GA: Alert and oriented ?3. HEENT: WNL. Heart: Regular rate and rhythm. Lungs: Clear to auscultation bilaterally. Abdomen: Bowel sounds present, nontender, minimal tenderness, incision clean and dry, no redness, pain or edema. VISUAL INSPECTOR: Spotting bleeding. Extremities: No edema, no cyanosis, no calves pain. History History History 2 Term 2 0 Miscarriages/Ectopic 0 Living Children 2 Discharge Data Studies Completed and Pending Pending at discharge Category Date Time Status Pathology: Surgical [PTH] Routine Pth 10/29/23 13:25 Received Laboratory Results WBC 12.79 10^3/uL (3.29-11.43) H 10/30/23 02:04 RBC 4.01 10^6/uL (3.85-5.65) 10/30/23 02:04 Hgb 11.50 g/dL (11.27-16.99) 10/30/23 02:04 Hct 35.3 % (36-47) L 10/30/23 02:04 MCV 88.0 fl (85-98) 10/30/23 02:04 MCH 28.7 pg (27-33) 10/30/23 02:04 MCHC 32.6 g/dL (30-55) 10/30/23 02:04 RDW 12.4 % (12.1-15.1) 10/30/23 02:04 Plt Count 324 10^3/cmm (157-399) 10/30/23 02:04 MPV 9.9 fL (7.4-10.4) 10/30/23 02:04 Neut % (Auto) 51.8 % 10/29/23 11:20 Lymph % (Auto) 36.0 % 10/29/23 11:20 [place] % (Auto) 7.2 % 10/29/23 11:20 Eos % (Auto) 3.7 % 10/29/23 11:20 Baso % (Auto) 0.9 % 10/29/23 11:20 Neut # (Auto) 4.03 10^3/uL (1.8-7.7) 10/29/23 11:20 Lymph # (Auto) 2.8 10^3/uL (0.8-4.8) 10/29/23 11:20 [place] # (Auto) 0.6 10^3/uL (0.2-0.9) 10/29/23 11:20 Eos # (Auto) 0.3 10^3/uL (0.0-0.8) 10/29/23 11:20 Baso # (Auto) 0.1 10^3/uL (0.0-0.1) 10/29/23 11:20 Nucleated RBC % (auto) 0 % 10/29/23 11:20 Nucleated RBCs # 0.0 /100WBC 10/29/23 11:20 Sodium 139 mmol/L (136-145) 10/29/23 11:20 Potassium 4.1 mmol/L (3.5-5.1) 10/29/23 11:20 Chloride 105 mmol/L (98-107) 10/29/23 11:20 Carbon Dioxide 22 mmol/L (22-29) 10/29/23 11:20 Anion Gap 16.1 (5-19) 10/29/23 11:20 BUN 12 mg/dL (6-20) 10/29/23 11:20 Creatinine 0.4 mg/dL (0.5-0.9) L 10/29/23 11:20 GFR Calculation 180.6 mL/min (90-130) H 10/29/23 11:20 Glucose 88 mg/dL (65-115) 10/29/23 11:20 Calculated Osmolality 287 mOsm/kg (285-295) 10/29/23 11:20 Calcium 8.9 mg/dL (8.5-10.5) 10/29/23 11:20 Total Bilirubin 0.2 mg/dL (0.15-1.2) 10/29/23 11:20 AST 20 U/L (0-32) 10/29/23 11:20 ALT 17 U/L (0-33) 10/29/23 11:20 Alkaline Phosphatase 91 U/L (35-105) 10/29/23 11:20 Total Protein 7.3 g/dL (6.6-8.7) 10/29/23 11:20 Albumin 4.4 g/dL (3.5-5.2) 10/29/23 11:20 Globulin 2.9 g/dL (1.3-4.6) 10/29/23 11:20 Urine Color Yellow (Yellow) 10/29/23 11:25 Urine Appearance Clear (CLEAR) 10/29/23 11:25 Urine pH 5 (5-7) 10/29/23 11:25 Ur Specific [place] 1.020 (1.005-1.030) 10/29/23 11:25 Urine Protein Neg (Negative) 10/29/23 11:25 Urine Glucose (UA) Norm (Normal) 10/29/23 11:25 Urine Ketones 1+ (Negative) H 10/29/23 11:25 Urine Blood Neg (Negative) 10/29/23 11:25 Urine Nitrate Negative (Negative) 10/29/23 11:25 Urine Bilirubin Neg (Negative) 10/29/23 11:25 Urine Urobilinogen Norm mg/dL (Negative) 10/29/23 11:25 Ur Leukocyte Esterase Negative (Negative) 10/29/23 11:25 Urine HCG, Qual Negative (Negative) 10/29/23 11:00 Blood Type A Positive 10/29/23 11:20 Rho(D) Type Rh positive 10/29/23 11:20 Antibody Screen Negative 10/29/23 11:20 Vitals Last Vital Signs Temp 98.1 F 10/30/23 08:00 Pulse 86 10/30/23 08:00 Resp 16 10/30/23 08:00 BP 129/78 10/30/23 08:00 Pulse Ox 96 10/30/23 08:00 O2 Del Method Room Air 10/30/23 07:32 O2 Flow Rate 3 10/29/23 14:29 Results Labs OB ([facility]): Obstetrics US 11/12/21 Blood Type A Positive 10/29/23 Antibody Screen Negative 10/29/23 Hct 35.3 % (36-47) L 10/30/23 Hgb 11.50 g/dL (11.27-16.99) 10/30/23 Rho(D) Type Rh positive 10/29/23 Plt Count 324 10^3/cmm (157-399) 10/30/23 Hep Bs Antigen Non-reactive (Nonreactive) 05/30/21 Hep B Core Total Ab Non-reactive (Nonreactive) 05/30/21 Hep Bs Antibody 796.7 (11.5-1000) 05/30/21 Hepatitis C Antibody Non-reactive (Nonreactive) 05/30/21 TSH 1.29 uIU/mL (0.27-4.20) 04/23/23 Free T4 1.11 ng/dL (0.82-1.77) 04/23/23 Hemoglobin A1c 4.7 % (4.0-6.0) 04/23/23 Ser , Semi-Qnt 32750.00 mIU/mL 07/30/21 HCG, Qual Negative (Negative) 08/18/22 Discharge Plan Discharge Patient Disposition: Home Condition: Stable Prescriptions: New hydrocodone-acetaminophen 5-325 mg tablet 1 tab PO Q4H PRN (Reason: pain) Qty: 20 0RF acetaminophen 325 mg capsule 325 mg PO Q4H PRN (Reason: fever or pain) Qty: 60 0RF docusate sodium [Colace] 100 mg capsule 100 mg PO BID Qty: 60 0RF ibuprofen 800 mg tablet 800 mg PO TID PRN (Reason: pain) Qty: 60 0RF Continued phentermine 37.5 mg tablet 37.5 mg PO DAILY Qty: 30 0RF Rx Instructions: must administer 30 minutes before or 1-2 hours after breakfast vitamin B complex Tablet 1 tab PO DAILY albuterol sulfate [Ventolin HFA] 90 mcg/actuation HFA aerosol inhaler 2 puff inhalation Q6H PRN (Reason: shortness of breath or wheezing) Qty: 8.5 2RF Ubrelvy 100 mg tablet 100 mg PO ONCE PRN (Reason: migraine headache) Qty: 10 5RF venlafaxine 150 mg capsule,extended release 24hr 150 mg PO DAILY Qty: 90 1RF ergocalciferol (vitamin D2) 1,250 mcg (50,000 unit) capsule See Rx Instructions .ROUTE .COMPLEX Qty: 4 2RF Dose Instruction: TAKE ONE CAPSULE BY MOUTH WEEKLY Rx Instructions: TAKE ONE CAPSULE BY MOUTH WEEKLY amitriptyline 50 mg tablet 50 mg PO DAILY Qty: 90 1RF cyclobenzaprine 10 mg tablet See Rx Instructions .ROUTE .COMPLEX Qty: 90 2RF Dose Instruction: TAKE ONE TABLET BY MOUTH THREE TIMES DAILY NEEDED FOR MUSCLE SPASMS Rx Instructions: TAKE ONE TABLET BY MOUTH THREE TIMES DAILY NEEDED FOR MUSCLE SPASMS Zyrtec 10 mg Capsule 10 mg PO DAILY buspirone 10 mg tablet 10 mg PO TID Rx Instructions: TAKE ONE TABLET BY MOUTH THREE TIMES DAILY Ambien 10 mg tablet 5 mg PO .[facility] Discharge Orders: Discharge Order (Routine); Ordered 10/30/23 Ordered By: Raj Sahni Discharge Diet: Usual diet Discharge Activity: Limit activity as instructed Patient Instructions: Opioid Safety, Vaginal Hysterectomy (GEN) Activity Restrictions/Additional Instructions: 1. Please call [facility] on next working day to make your post-operative appointment in 2 weeks. 2. Please stay home until you come back to the clinic on first post- hospatilization check up. 3. Please follow instructions on your medications CAREFULLY. 4. If you have abdominal incision, do not cover it unless dressing is necessary because of drainage. OK to shower, but avoid bath. Leave steri-strips until they fall off. If they are still on one week after surgery, you may remove them. 5. If you had vaginal surgery or vaginal repair, Dr. Sahni may instruct you to take SITZ bath. 6. Yellow, blood tinged odorous vaginal discharge is usually normal after hysterectomy or vaginal surgeries. 7. No SEXUAL INTERCOURSE, tampons, or douches until you are completely released from the post-operative care. 8. Avoid constipation by eating right and maybe using some Metamucil or Milk of Magnesia. 9. All prescription refills are given during the working hours. Please do no wait till it runs out. Call the clinic at [phone] before your medication runs out. The clinic will get in touch with your doctor to prescribe medications if necessary. 10. Please remain within 40 mile radius from our hospital because emergencies do happen now and then during the post-operative period. 11. If you have stairs at home, take one step at a time slowly and minimize the number of trips. It helps to stay in one floor for the next few days. No lifting except what you can lift by one hand until you are released from the post-operative care. 12. Driving is discouraged until you are well healed. It may be 3-4 weeks before you feel strong enough to drive. You should be able to turn and look through the rear window without pain and you should be able to push the brake pedal very hard without pain before you drive. No fast rules, but SAFETY should be your primary concern. DO NOT drive if you are on sedating medications such as narcotics. 13. Call the clinic (during working hours) to make urgent appointment or go to the Emergency room, if any of the following occurs: i. Vaginal bleeding becomes heavy, more than a period. ii. Incision becomes red and sore, or drains pus. iii. Your TEMPERATURE is over 100.4F or you have chill. iv. IV site becomes red and swollen (a little ``knot?? is usually OK) v. Persistent nausea and vomiting vi. Persistent constipation or diarrhea vii. Rash or allergic reaction to medications. Discharge Attestations BEAN VINER Time Spent in Discharge Care*: greater than 30 min Coding Level of Care Code Acute Code for Chg Fwd
== END 2023-10-30 10:40 | disposition home or self-care (01) ==
LOC: MEDSURG 13:47
PROVIDERS: Admitting Provider Obstetrics & Gynecology; PCP Nurse Practitioner Family; Visit Provider Obstetrics & Gynecology
PROC: (CPT 58260; principal; 2023-10-29 12:00)
DX: D25.9 Leiomyoma of uterus, unspecified (principal); N94.6 Dysmenorrhea, unspecified; N72 Inflammatory disease of cervix uteri; Z87.891 Personal history of nicotine dependence
CPT/HCPCS: 58260; 36415; 51702; 80053; 81003; 81025; 85025; 85027; 86850; 86900; 88307; G0378; J0694; J1100; J1170; J1885; J2250; J2405; J2704; J3010; J3490; J7030; J7040; J7121

== ENCOUNTER → 2023-12-18 04:49 | Outpatient (BNVA) | payer OTHER, MEDICAID, SELFPAY | PROVIDERS: PCP Nurse Practitioner Family; Visit Provider Obstetrics & Gynecology | DX: Z48.816 Encounter for surgical aftercare following surgery on the genitourinary system (principal) | CPT/HCPCS: 84443 ==

== ENCOUNTER 2024-06-01 04:39 | Outpatient (CLI) | payer OTHER, SELFPAY ==
[2024-06-03 18:39] LABS: Quantiferon Mitogen 8.13 IU/mL; Quantiferon Nil 0.04 IU/mL; Quantiferon Plus TB1 0.08 IU/mL; Quantiferon TB Gold NEGATIVE (NEGATIVE)
== END 2024-06-01 04:40 | disposition home or self-care (01) ==
PROVIDERS: PCP Nurse Practitioner Family; Visit Provider Nurse Practitioner Family
DX: Z02.1 Encounter for pre-employment examination (principal)
CPT/HCPCS: 36415; 86480

== ENCOUNTER → 2025-02-07 11:24 | Outpatient (BNVA) | payer BC, SELFPAY | PROVIDERS: PCP Nurse Practitioner Family; Visit Provider Nurse Practitioner Family | DX: G43.009 Migraine without aura, not intractable, without status migrainosus (principal); E55.9 Vitamin D deficiency, unspecified | CPT/HCPCS: 80053; 80061; 82306; 83735; 85025 ==

== ENCOUNTER → 2025-04-18 10:37 | Outpatient (BNVA) | payer BC, SELFPAY | PROVIDERS: PCP Nurse Practitioner Family; Visit Provider Nurse Practitioner Family | DX: R05.9 Cough, unspecified (principal); J02.9 Acute pharyngitis, unspecified | CPT/HCPCS: 87071; 87400; 87426; 87880 ==